=== PATIENT | female | born 1990 | race Caucasian/White ===

== ENCOUNTER → 2018-08-14 12:48 | Outpatient (CLI) | payer OTHER, MEDICAID, SELFPAY ==
[2018-08-14 13:27] LABS: Add Manual Diff / Slide Review NO; Basophils Percent Auto 0.8 % (0-2); Eosinophils Percent Auto 4.2 % (2-4); Hematocrit 39.5 % (36-46); Hemoglobin 13.6 g/dL (12.0-16.0); Lymphocytes Percent Auto 30.5 % (25-40); Mean Corpuscular HGB Conc 34.4 % (30-36); Mean Corpuscular Hemoglobin 28.5 PG (26-34); Mean Corpuscular Volume 82.7 fL (80-100); Monocytes Percent Auto 6.6 % (3-14); Neutrophils Absolute Auto 3800 /uL (3000-5900); Neutrophils Percent Auto 57.9 % (50-75); Platelet Count 236 X10^3/uL (150-400); Red Blood Cell Count 4.77 X10^6/uL (4.0-5.2); Red Cell Distribution Width 13.6 % (11.6-14.8); White Blood Cell Count 6.6 X10^3/uL (4.5-11.0)
== END ==
PROVIDERS: PCP Family Medicine; Visit Provider Family Medicine
DX: N92.0 Excessive and frequent menstruation with regular cycle (principal); Z86.32 Personal history of gestational diabetes
CPT/HCPCS: 36415; 83036; 85025

== ENCOUNTER 2018-09-14 12:44 | Day surgery (SDC) | payer OTHER, MEDICAID, SELFPAY ==
[2018-09-10 14:24] VITALS: BMI 27.8
[2018-09-14] VITALS (17 sets, daily range): BP systolic 102–138; BP diastolic 55–84; PULSE 58–91; RESP 14–32; TEMP 36.2–37.4; O2SAT 92–100; BMI 27.8
--- NOTE | 2018-09-14 | PATH_ITS ---
[facility] Accession Number: [id number] . 01 Material submitted: . UTERUS . 02 Diagnosis: Uterus, Vaginal Hysterectomy: Cervix with no diagnostic abnormality. Proliferative endometrium with no diagnostic abnormality. Myometrium with no diagnostic abnormality. No evidence of neoplasm. MRV/09/17/2018 . 02 Electronically signed: . Max Guzman MD, PhD, Pathologist NPI- [id number] . 01 Gross description: . Received in formalin, labeled uterus, is a uterus (84 grams, 3.6 cm AP, 7.8 cm SI, 5.2 cm ML). The ovaries and fallopian tubes are absent. The uterus is longitudinally sliced opened and cannot be oriented as to anterior and posterior. The cervix (2.5 cm AP, 3.2 cm ML) has a transverse os and patent endocervical canal. The endometrium (average thickness-0.2 cm) is longo and shaggy. The myometrium (thickness-2.2 cm) is longo-white and unremarkable. The serosa is pale longo smooth and shiny. Section code: (A1) cervix; (A2) cervix, opposite side; (A3, A4) endomyometrium; (A5, A6) endomyometrium, opposite side. ([id number]) /MRV . 02 Pathologist provided ICD-10: N92.1 . 02 CPT . 636039 Specimen Comment: A duplicate report has been generated due to demographic updates. Performed at: [facility] [address] [facility], [place], [place] [id number] MD Juan Carlos Pabon MD Phone: [phone] Performed at: [facility] [address] [place] [id number] MD Parish Hunt MD Phone: [phone]
[2018-09-14] MEDS: LACTATED RINGERS 1,000 ML 42 ML IV (13:25)
[2018-09-14] MEDS: MIDAZOLAM 2 MG/2 ML VIAL IV (13:40)
--- NOTE | 2018-09-14 13:40 | SUR.PREOP ---
Pt. extremely nervous, anesthesia gave verbal order to medicate with 2mg IV.
[2018-09-14] MEDS: CEFOTETAN 2 GM/50 ML PIGGYBACK IV (13:55)
--- NOTE | 2018-09-14 14:08 | SUR.OPER ---
Lithotomy on padded OR bed, head on pillow, arms secured on padded arm boards at <90 degrees abduction. Legs secured in padded yellow fins stirrups.
[2018-09-14] MEDS: BUPIVACAINE 0.5% W/ EPI (PF) VIAL 30 ML INJ (14:14)
--- NOTE | 2018-09-14 14:48 | P.OP_ITS ---
Operative Date/Time/Diagnoses Date of procedure: 09/14/18 Time of procedure: 14:42 Pre-op diagnosis: Menometrorrhagia Uterine descensus Post-op diagnosis: same Procedure: Procedures Operation Date: 09/14/18 14:00 Actual Procedures Side Surgeon p Vaginal Hysterectomy Dinesh Rinaldi MD Indications: Menometrorrhagia Uterine descensus Surgeon: Dinesh Rinaldi Band Scroll Saw Operator: Kayla Yu Anesthesia Type: General Operative Notes Findings: Uterus Normal tubes and ovaries Specimen(s): uterus Estimated blood loss (mL): 100 Blood products transfused: none Procedure in detail: The patient is placed supine upon the operating table and anesthetized. She was then placed in the dorsal lithotomy position and examined under anesthesia. Under anesthesia she had an anteverted uterus of normal size and no adnexal masses. The patient was then draped and prepared in the usual fashion. A posterior weighted retractor was set in place and the anterior lip of the cervix two tooth tenacula. Berlin retractor was set in place. A circumferential injection of 0.5% Marcaine and 1 to 116765 epinephrine was then performed without difficulty. Sharp knife incision was then made circumferentially. The anterior pubocervical fascia was then dissected. The bladder was pushed in a cephalad direction exposing the peritoneum. The perineum was picked up and incised the Thania retractor set in place. Attention was turned to the posterior side. Area was grasped and incised with a large Gilmore scissors. And the peritoneum opened. The longer posterior weighted retractor was then set in place. The right uterosacral leg was then clamped incised and suture ligated this pedicle held. The left uterus sacral ligaments bilaterally clamped incised and suture ligated this pedicle held. The cardinal ligaments were then bilaterally count clamped incised and suture ligated with 1. Chromic suture. Uterine vessels were bilaterally clamped incised and suture ligated with 1. Chromic suture. 2 additional clampings were then used until tubo-ovarian rounds were clamped. These were free tied and and suture ligated with 1. Chromic suture. Tubes and ovaries appeared to be normal. The uterus was removed and opened and appeared to be normal. This no perineum was then closed with a pursestring suture of 0 chromic suture without difficulty. Angle sutures of 1. Chromic suture were then used bilaterally. The vaginal cuff was then closed with interrupted 1. Chromic suture. At the end of the procedure there was no bleeding. Bladder was catheterized and the urine was clear. Patient was taken to the recovery room in satisfactory condition. Complications: none Post-operative Condition: stable Disposition: PACU Plan for aftercare: Patient is admitted to the floor
[2018-09-14] MEDS: fentaNYL 100 MCG/2 ML INJ 50 MCG IV ×2 (14:54→15:10)
[2018-09-14] MEDS: HYDROMORPHONE 2 MG INJ 0.5 MG IV ×4 (14:55→15:42)
[2018-09-14] MEDS: MEPERIDINE 50 MG/ML 25 MG IV (15:03)
--- NOTE | 2018-09-14 15:21 | SUR.PHASEI ---
Gave report to Bety Reeves RN
[2018-09-14] MEDS: KETOROLAC 30 MG/ML VIAL IV ×2 (17:27→23:46)
[2018-09-14] MEDS: LACTATED RINGERS 1,000 ML 100 ML IV (17:30)
[2018-09-14] MEDS: HYDROMORPHONE 2 MG TABLET PO ×2 (17:32→21:28)
[2018-09-14 17:59] LABS: BUN Creatinine Ratio 18.3 (6-22); Blood Urea Nitrogen 11 mg/dL (7-17); Calcium 8.9 mg/dL (8.4-10.2); Carbon Dioxide 21 mmol/L (22-32); Chloride 106 mmol/L (98-107); Estimated Glomerular Filt Rate > 60.0 mL/min (>60); Glucose 94 mg/dL (70-100); HEMOLYSIS < 15 (0-50); Potassium 3.6 mmol/L (3.4-5.1); Sodium 140 mmol/L (137-145)
[2018-09-14] MEDS: HYDROMORPHONE 0.5 MG INJ IV (20:45)
--- NOTE | 2018-09-14 22:26 | PC.NURSE ---
Evening Shift Note- Patient arrived to room from [facility] bed at 1550. Patient alert and oriented and able to make needs known to staff. surgical admission questions completed. PRN PO Dilaudid given as ordered per patient request for complaints of pain and cramping. Patient tolerated with no s/s of ase noted. Patient oriented to bed and bed controls, room, bathroom, lights, phone, menu, and call acosta/tv remote. Patient agrees to call for assistance. Patient requires SBA due to IV pole and tubing. Steady gait noted. safety measures in place. call acosta and phone within reach. Will continue to monitor.
[2018-09-14] MEDS: HYDROCODONE/ACET 5/325 TABLET 2 TAB PO (23:41)
[2018-09-14] MEDS: ZOLPIDEM 5 MG TABLET 10 MG PO (23:41)
[2018-09-15] VITALS: BP 140/68; PULSE 57; RESP 17; TEMP 37; O2SAT 100
[2018-09-15] MEDS: HYDROMORPHONE 2 MG TABLET PO ×2 (01:12→06:40)
[2018-09-15] MEDS: CEFOTETAN 2 GM/50 ML PIGGYBACK IV (02:55)
[2018-09-15] MEDS: LACTATED RINGERS 1,000 ML 100 ML IV (02:56)
[2018-09-15] MEDS: HYDROCODONE/ACET 5/325 TABLET 2 TAB PO (03:49)
[2018-09-15 03:51] VITALS: BP 117/55; PULSE 54; RESP 19; O2SAT 100
--- NOTE | 2018-09-15 03:56 | PC.NURSE ---
Pt is A and O x 4, VSS, afebrile. Pt is rating pain 5-7/10 routinely donell p urination. All prn pain meds given; pt prefers IVP dilaudid. S1, S2, LS clear, + BTs, and voiding qs clear yellow. Scant vag discharge, pink. Pt has been emotional this shift 2/2 pain issues and noisy pt next door.
[2018-09-15] MEDS: HYDROMORPHONE 0.5 MG INJ IV (04:32)
--- NOTE | 2018-09-15 04:49 | PC.NURSE ---
Pt requested IVP dilaudid and p administration she claimed she was not given anything. That we have given her heart burn which she didn't have before she came in and that this batch of nurses have not done anything for me. Nurse Coordinator asked to speak to patient who verified that noc shift med regime the same as evenings. Pt crying and yelling. MD should be rounding within two hours.
--- NOTE | 2018-09-15 05:23 | PC.NURSE ---
Dr. Moreno Mason contacted per patient request, but declined to come in and advised patient wait to see Dr. Bee when he rounds in 1- 2 hours.
[2018-09-15] MEDS: ONDANSETRON 4 MG/2 ML INJ IV (06:39)
--- NOTE | 2018-09-15 06:42 | PC.NURSE ---
NOC Shift I stepped up to help assigned RN. Patient's signifigant other arrived around 0520 and seemed to calm the patient (patient was yelling/screaming out throughout shift, using profanities to staff and in general). I went to room two times, per nurse coordinator, but patient was relaxed and had room dark. Responded with pt threw up (clear, maybe 30ml, on the floor). Administered 4mg Zofran and offered Zetorolac for 6/10 pain. Patient yelled and stated, Don't you women know that isn't working. I tried to explain the medication and how it can be an effective additive to her pain regimen, but she refused and preferred to have the 2mg Dilaudid PO, which I administered to her at 0640.
[2018-09-15 07:36] LABS: Add Manual Diff / Slide Review NO; Basophils Percent Auto 0.2 % (0-2); Hematocrit 40.3 % (36-46); Hemoglobin 13.9 g/dL (12.0-16.0); Lymphocytes Percent Auto 8.6 % (25-40); Mean Corpuscular HGB Conc 34.4 % (30-36); Mean Corpuscular Hemoglobin 28.6 PG (26-34); Mean Corpuscular Volume 83.1 fL (80-100); Monocytes Percent Auto 5.7 % (3-14); Neutrophils Absolute Auto 13100 /uL (3000-5900); Neutrophils Percent Auto 85.5 % (50-75); Platelet Count 259 X10^3/uL (150-400); Red Blood Cell Count 4.85 X10^6/uL (4.0-5.2); Red Cell Distribution Width 13.2 % (11.6-14.8); White Blood Cell Count 15.3 X10^3/uL (4.5-11.0)
--- NOTE | 2018-09-15 07:47 | PC.NURSE ---
Addendum entered by Annabelle Clayton R.N. 09/15/18 08:34: Add-Pt did accept w/c assistance out from JACQUELYN Dangelo approx [address], safely escorted to private vehicle. Original Note: Addendum entered by Annabelle Clayton R.N. 09/15/18 08:12: 0758-Dr cagle into get Pt d/c paperwork completed. IV removed. Attempted to Explain Rx's, Pt refused, I just want the fuck out of here, what dont you understand? Refused w/c assistance, walked Pt out. Notified Coordinator Elke. Original Note: Am shift Came on shift to Pt crying, upset that medication wasn't given to her to help her pain, and that Pt next door was yelling overnight. C/o heartburn. Pt in shower, discussed medication overnight and what Pt had been receiving. And discussed POC for d/c today. I want to go home, I just want the to send me home now Reassured.
--- NOTE | 2018-09-15 08:01 | PM.DS.1 ---
History of Present Illness Date Patient Seen: 09/15/18 Time Patient Seen: 08:01 Chief complaint: *OPB* [id number] Narrative: Menometrorrhagia Uterine descent Discharge Providers Primary care physician: Kayla Yu MD Discharge provider: Dinesh Rinaldi MD Discharge Date: 09/15/18 Summary Discharge Diagnosis: Status post vaginal hysterectomy Menometrorrhagia Uterine descensus Hospital Course: Patient is a 28-year-old presented with intractable history of menometrorrhagia dysmenorrhea pelvic pain and uterine prolapse. Patient had tried all the distal therapies and found to be ineffective and desired hysterectomy. On the 14 September 2018 the patient was taken to surgery where she underwent a vaginal hysterectomy without incident. Postoperatively she did well. She remained afebrile with stable vital signs and was progressively elevated at ambulated. She was discharged home for follow-up in two weeks. Status at Discharge Functional status at discharge: independent ambulation Time Spent with Patient Less than 30 minutes Exam Vital Signs (past 8 hours): - 09/15/18 03:51 Pulse Rate 54 L Respiratory Rate 19 Blood Pressure 117/55 L Pulse Oximetry 100 Oxygen Delivery Method Room Air Narrative Exam Narrative: Abdomen is soft and nontender Vaginal drainage is scant Objective Labs Result Diagrams: 09/15/18 07:08 09/14/18 17:19 Labs: Laboratory Results - last 24 hr 09/14/18 09/15/18 17:19 07:08 WBC 15.3 H RBC 4.85 Hgb 13.9 Hct 40.3 MCV 83.1 MCH 28.6 MCHC 34.4 RDW 13.2 Plt Count 259 Neut % (Auto) 85.5 H Lymph % (Auto) 8.6 L Converse % (Auto) 5.7 Eos % (Auto) 0.0 L Baso % (Auto) 0.2 Neut # (Auto) 12149 H Sodium 140 Potassium 3.6 Chloride 106 Carbon Dioxide 21 L BUN 11 Creatinine 0.60 Estimated GFR > 60.0 BUN/Creatinine Ratio 18.3 Glucose 94 Calcium 8.9 Discharge Plan Discharge Plan Patient Disposition: Home Discharge comment: Follow-up with Dr. Larsen in two weeks Discharge Med Rec/Prescriptions Prescriptions: New oxycodone-acetaminophen [Percocet] 5-325 mg tablet 2 tab PO Q4-6H PRN (Reason: pain) Qty: 30 RF: 0 ibuprofen 600 mg tablet 600 mg PO QID PRN (Reason: pain) Qty: 20 RF: 0 Continue buspirone 15 MG tablet 15 mg PO BID Qty: 60 RF: 1 albuterol sulfate [Proventil HFA] 90 mcg/actuation HFA aerosol inhaler 2 puff INHALATION Q4HP PRN (Reason: shortness of breath or wheezing) Qty: 3 RF: 3 zolpidem 5 mg tablet 5 mg PO BEDTIME PRN (Reason: insomnia) Qty: 30 RF: 0 alprazolam [Xanax] 1 mg tablet 0.5 mg PO ONCE PRN (Reason: anxiety) Qty: 1 RF: 0 Discontinued ondansetron [Zofran ODT] 4 mg tablet,disintegrating 4 mg Sublingual Q6HP PRN (Reason: nausea) Qty: 30 RF: 0 meloxicam 7.5 mg tablet 7.5 mg PO DAILY Qty: 60 RF: 0 oxycodone-acetaminophen [Percocet] 5-325 mg tablet 1 tab PO Q4-6H PRN (Reason: pain) Qty: 10 RF: 0 Follow up/Referrals: Kayla Yu MD [Primary Care Provider] - Discharge Orders: Discharge (Order); Ordered 09/15/18 Ordered By: Dinesh Rinaldi Provider Discharge Instructions Diet: Diet as Tolerated Activity: Up ad ignacio May shower Skin/Wound/Dressing Care Report to your healthcare provider any signs of infection, such as:: chills, fever, increased pain and unusual drainage Visit Report/Discharge Packet Instructions: DI for Hysterectomy Stand Alone Forms: Surgery Discharge Discharge Data Primary Care Provider: Kayla Yu Attending Provider: Dinesh Rinaldi VTE Deep Vein Thrombosis/Pulmonary Embolism Present on Admission: No
--- NOTE | 2018-09-15 13:21 | CM.DANOTE ---
Discharge Planning/Care Management DCP: Assessment: Case received and discussed in Team Rounds. Pt is a 28 year old female who admitted to care of Dr. Rinaldi for a scheduled gynecological surgery. [facility] and Medicaid. PCP: DR. Yu Had planned to meet with pt after Rounds for introduction of self and role but RN peace Bedoya explained that pt had become angry and agitated early this morning and insisted on leaving immediately. Dr. Rinaldi had arrived and gave d/c orders. See RN Annabelle's note. Pt left with her for home at 0815. Am noting now the pre-op/pre anesthesia assessment notes. Preop RN Dunia Laguerre reports pt with hx of alcoholism, methamphetamine and heroin use. Is unclear if this played any role in pt's decision to leave the hospital. 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 No Currently Taking a Beta Hank No Anti-Coagulant Therapy No Has a Global Marketing Intern No Cardiac Testing No Hx Pacemaker/ICD No Pacemaker Rep Required? No Cardiac Clearance Received Not Applicable Patient No Lactating No Comment LMP 08/06/18 Hx Drug Resistant Organism H-pylori Presence of External or Internal Medical No Devices Marital Status Lives With spouse children
== END 2018-09-15 09:18 | disposition home or self-care (01) ==
LOC: OR 12:49 → AC 16:26
PROVIDERS: PCP Family Medicine
PROC: (CPT 58260; principal; 2018-09-14 14:00)
DX: N92.1 Excessive and frequent menstruation with irregular cycle (principal); N94.5 Secondary dysmenorrhea
CPT/HCPCS: 58260; 36415; 80048; 85025; J1100; J1170; J1885; J2175; J2250; J2405; J2704; J3010

== ENCOUNTER 2018-12-18 07:14 | Day surgery (SDC) | payer OTHER, MEDICAID, SELFPAY ==
[2018-09-14 18:14] VITALS: BMI 27.8
[2018-12-18] VITALS (7 sets, daily range): BP systolic 101–120; BP diastolic 55–71; PULSE 56–74; RESP 12–23; TEMP 36.6–36.8; O2SAT 96–100; BMI 25.8
[2018-12-18] MEDS: ONDANSETRON 4 MG/2 ML INJ IV (07:36)
[2018-12-18] MEDS: SODIUM CHLORIDE 0.9% 1,000 ML 200 ML IV (07:45)
--- NOTE | 2018-12-18 08:14 | PM.PREOP ---
Pre-operative Note Interval Note History & Physical reviewed/Exam performed by Physician: Yes Changes to H&P: No ASA Class (for procedural sedation): II
[2018-12-18] MEDS: SCOPOLAMINE 1 PATCH TOP (08:16)
[2018-12-18] MEDS: diphenhydrAMINE 50 MG/ML VIAL 25 MG IV (08:28)
[2018-12-18] MEDS: fentaNYL 250 MCG/5 ML INJ IV (08:46)
[2018-12-18] MEDS: MIDAZOLAM 5 MG/5 ML VIAL IV (08:47)
--- NOTE | 2018-12-18 08:49 | PM.OP.ENDO ---
Operative Date/Time/Diagnoses Date of procedure: 12/18/18 Time of procedure: 08:49 Pre-op diagnosis: Rectal pain bleeding Post-op diagnosis: same Procedure & Clinicians Study performed: Colonoscopy Same procedure as scheduled: Yes Indications: Rectal pain. Rectal bleeding. Procedure Notes SCOAP/Timeout: Performed Procedure in detail: The patient is placed in left lateral decubitus position underwent IV sedation directed with the surgeon consisting of fentanyl and Versed. Topical anesthetic was applied to the anal verge. The patient had anti nausea medicines given prior to starting due to her history of nausea with anesthesia. Digital exam increased sphincter tone. Visible sentinel pile. Tender. Scope was inserted advanced through the rectum into the sigmoid where encountered a few diverticuli. We continued on of the descending transverse and ascending colon reaching the cecum identified by the ileocecal valve and the appendiceal opening. Scope was gradually brought out. I could identify no polyps going in or out. Scope was retroflexed in the rectum. The patient had scarring on old hemorrhoidal disease. There was no active ulceration. No in visible inflammation. The scope was removed. With the patient better sedated I examined her anus a little further and she may have some mild induration at the 5:00 position. We will consider exam under anesthesia to evaluate. Findings: diverticulosis and internal hemorrhoids Recommendations: Colonscopy in 10 years Follow up: weeks (Will contact patient) Disposition: PACU
--- NOTE | 2018-12-18 09:12 | SUR.PHASEI ---
see i & O for normal saline infusion total. MAR did not have start time so i was unable to end infusion
== END 2018-12-18 09:32 | disposition home or self-care (01) ==
PROVIDERS: PCP Family Medicine; Visit Provider Specialist
PROC: 0DJD8ZZ Inspection of Lower Intestinal Tract, Via Natural or Artificial Opening Endoscopic (ICD-10-PCS; CPT 45378; principal; 2018-12-18 08:45)
DX: K62.5 Hemorrhage of anus and rectum (principal); K57.30 Diverticulosis of large intestine without perforation or abscess without bleeding; K64.8 Other hemorrhoids; F17.210 Nicotine dependence, cigarettes, uncomplicated; F41.9 Anxiety disorder, unspecified; J45.909 Unspecified asthma, uncomplicated; F31.9 Bipolar disorder, unspecified; F32.9 Major depressive disorder, single episode, unspecified
CPT/HCPCS: 45378; J1200; J2250; J2405; J3010

== ENCOUNTER 2018-12-21 09:34 | Day surgery (SDC) | payer OTHER, MEDICAID, SELFPAY ==
[2018-09-14 18:14] VITALS: BMI 27.8
[2018-12-19 12:15] VITALS: BMI 26.3
[2018-12-21] VITALS (11 sets, daily range): BP systolic 94–136; BP diastolic 46–94; PULSE 65–89; RESP 10–20; TEMP 36.2–36.4; O2SAT 97–100; BMI 26.3
--- NOTE | 2018-12-21 | PATH_ITS ---
[facility] Accession Number: [id number] . 01 Material submitted: . PART A: ANAL TAG PART B: EXTERNAL TAG PART C: RIGHT POSTERIOR LATERAL HEMORRHOID . 01 Diagnosis: A. Anal Tag, Biopsy: Benign fibroepithelial polyp (acrochordon/skin tag). Negative for dysplasia or malignancy. . B. External Tag, Biopsy: Benign fibroepithelial polyp (acrochordon/skin tag). Negative for dysplasia or malignancy. . C. Right Posterior Lateral Hemorrhoid, Excision: Hemorrhoid tissue. Negative for malignancy. MRV/12/25/2018 . 01 Comment: This case has also been reviewed by Dr. Angie Jaquez, who concurs with the diagnoses. . 01 Electronically signed: . Ester Radford MD, Pathologist NPI- [id number] . 01 Gross description: . (A) Received in formalin, labeled anal tag, is a piece of carpio-white rubbery polypoid skin (0.8 x 0.5 x 0.2 cm). The resection margin is inked black. Bisected and entirely submitted in cassette A1. (B) Received in formalin, labeled external tag, is a piece of carpio-white rubbery polypoid skin (1.5 x 1.0 x 0.3 cm). The resection margin is inked black. Serially sectioned into four slices and entirely submitted in cassette B1. (C) Received in formalin, labeled R posterior lateral hemorrhoid, is a piece of carpio-longo bulging skin (1.3 x 0.5 x 0.3 cm). The resection margin is inked black. Trisected and entirely submitted in cassette C1. ([id number]) /MRV . 01 Pathologist provided ICD-10: L91.8 . 01 CPT . 826364, 232909, 335645 Performed at: [facility] [address], [place], [place] [id number] MD Juan Carlos Pabon MD Phone: [phone]
[2018-12-21] MEDS: LACTATED RINGERS 1,000 ML 100 ML IV ×2 (10:03→13:47)
--- NOTE | 2018-12-21 10:59 | PM.PREOP ---
Pre-operative Note Interval Note History & Physical reviewed/Exam performed by Physician: Yes Changes to H&P: Yes H&P completed within 30 days and has changed as indicated here:: colonoscopy failed to reveal an obvious source of her rectal pain. Will take to OR to evaluate anus while asleep. Possible abscess drainage or possible lateral internal sphincterotomy discussed with the patient.
[2018-12-21] MEDS: MIDAZOLAM 2 MG/2 ML VIAL IV (11:00)
[2018-12-21] MEDS: SCOPOLAMINE 1 PATCH TOP (11:01)
[2018-12-21] MEDS: BUPIVACAINE 0.5% W/ EPI (PF) VIAL 30 ML INJ (13:09)
--- NOTE | 2018-12-21 13:13 | SUR.OPER ---
Supine on padded OR bed, head on pillow, arms secured on padded arm boards at <90 degrees abduction, legs uncrossed, safety belt at thigh, tape over blanket over lower legs.
--- NOTE | 2018-12-21 13:33 | PM.OP.1 ---
Operative Date/Time/Diagnoses Date of procedure: 12/21/18 Time of procedure: 13:33 Pre-op diagnosis: Rectal pain Post-op diagnosis: same (Hemorrhoid. Skin tags.) Procedure & Clinicians Procedure: Exam under anesthesia. Single column hemorrhoidectomy right posterior lateral, excision of skin tag anterior midline internal tag anterior midline Same procedure as scheduled: Yes Indications: Chronic pain Surgeon: Sherif Lindo Click Yes if Unassisted: Yes Anesthesia Type: General Operative Notes Findings: Single hemorrhoidal column. No evidence of abscess. Closure Type: primary Specimen(s): other (Tags and hemorrhoid) Estimated Blood Loss (mL): 20 Blood products transfused: none Procedure in detail: Patient was placed duct I prone on the operating room table after undergoing general endotracheal anesthesia. She was prepped and draped in the usual fashion. Digital exam was unremarkable except for 1 hemorrhoid and a visible tag in the anterior midline. A bivalve anoscope was inserted and circumferential exam undertaken. The only significant finding was of a hemorrhoid right posterior lateral. There was also small tag in the anterior midline internally which I snipped off and submitted. Careful exam both with the digit and visual inspection circumferentially failed to reveal any evidence whatsoever of an abscess. I excised the anterior midline tag and close the defect created with a running 4 0 chromic. I chose to remove the hemorrhoid which seemed a little full as there may have been some thrombosis in it causing some of her pain. Incision was made overlying the hemorrhoid and it was excised and then oversewn with running 2 0 chromic suture. Great care was taken not to injure the underlying sphincter. A completion hemostasis was achieved. Nupercainal on Gel-Foam was inserted into the anus. Dressing was applied and the patient was awakened taken recovery room good condition. Complications: none Condition: stable Disposition: PACU Plan for aftercare: Follow-up in the office
[2018-12-21] MEDS: fentaNYL 100 MCG/2 ML INJ 50 MCG IV ×2 (13:41→13:53)
[2018-12-21] MEDS: LORazepam 2 MG/ML SYRINGE 0.5 MG IV (13:43)
[2018-12-21] MEDS: MEPERIDINE 50 MG/ML 25 MG IV (13:59)
[2018-12-21] MEDS: OXYCODONE/ACETAMINOPHEN 5/325 TABLET 1 TAB PO (14:26)
== END 2018-12-21 15:30 | disposition home or self-care (01) ==
PROVIDERS: PCP Family Medicine; Visit Provider Specialist
PROC: (CPT 45990; principal; 2018-12-21 11:30)
DX: L91.8 Other hypertrophic disorders of the skin (principal); K64.8 Other hemorrhoids; F17.210 Nicotine dependence, cigarettes, uncomplicated; F41.9 Anxiety disorder, unspecified; J45.909 Unspecified asthma, uncomplicated
CPT/HCPCS: 46999; 46220; 88304; J0330; J1100; J2060; J2175; J2250; J2405; J2704; J3010

== ENCOUNTER 2019-02-09 01:34 | Emergency (ER) | payer OTHER, MEDICAID, SELFPAY ==
[2018-12-27 13:49] VITALS: BMI 27.8
[2019-02-09 01:50] VITALS: BP 142/78; PULSE 68; RESP 18; TEMP 37.1; O2SAT 100; BMI 22.8
--- NOTE | 2019-02-09 02:05 | DI.CT.S_ITS ---
PROCEDURE: CT ABDOMEN PELVIS W CON INDICATIONS: severe pelvic pain TECHNIQUE: After the administration of intravenous contrast, 5 mm thick sections acquired from the diaphragm to the symphysis. 5 mm coronal and sagittal reformats were acquired. For radiation dose reduction, the following was used: automated exposure control, adjustment of mA and/or kV according to patient size. COMPARISON: [facility], CT, ABDOMEN/PELVIS WITH CONTRAST, 05/11/2012, 13:17. [facility], CT, ABDOMEN/PELVIS WITH CONTRAST, 11/22/2017, 12:17. FINDINGS: Image quality: Excellent. ABDOMEN: Lung bases: Lung bases are clear. A 7 mm pulmonary nodule in the extreme left lung base is stable from the prior study of 05/11/12. It is a benign finding for which no further followup is required. Heart size is normal. Solid organs: Liver is normal in size and enhancement. Gallbladder is unremarkable. Biliary system is non dilated. Pancreas enhances normally. Spleen is normal in size and enhancement. No adrenal nodules. Kidneys demonstrate normal size and enhancement, without hydronephrosis. Peritoneum and bowel: Bowel loops demonstrate normal wall thickness and caliber. No free fluid or air. Mild sigmoid and left colonic diverticulosis. No evidence of diverticulitis. Nodes and vessels: No retroperitoneal or mesenteric adenopathy by size criteria. Aorta and inferior vena cava are normal in size. Miscellaneous: No ventral hernias. PELVIS: Genitourinary: Bladder wall thickness is normal. Miscellaneous: No inguinal hernias or adenopathy. Bones: No suspicious bony lesions. No vertebral body compression fractures. IMPRESSION: 1. No evidence acute abdominal process. 2. Benign left lower lobe pulmonary nodule. No further followup required. 3. Mild diverticulosis. Comment: Final report is concurrent with preliminary interpretation by [facility] Dictated by: Thanh Gorman M.D. on 02/09/2019 at 8:03 Approved by: Thanh Gorman M.D. on 02/09/2019 at 8:08
[2019-02-09 02:27] LABS: Add Manual Diff / Slide Review NO; Basophils Absolute Auto 100 /uL (0-100); Basophils Percent Auto 0.8 % (0-2); Eosinophils Absolute Auto 200 /uL (0-450); Eosinophils Percent Auto 2.7 % (2-4); Hematocrit 38.3 % (36-46); Hemoglobin 13.2 g/dL (12.0-16.0); Lymphocytes Absolute Auto 2200 /uL (1100-4500); Lymphocytes Percent Auto 33.3 % (25-40); Mean Corpuscular HGB Conc 34.5 % (30-36); Mean Corpuscular Hemoglobin 28.9 PG (26-34); Mean Corpuscular Volume 83.7 fL (80-100); Monocytes Absolute Auto 400 /uL (0-900); Monocytes Percent Auto 6.1 % (3-14); Neutrophils Absolute Auto 3900 /uL (1500-7000); Neutrophils Percent Auto 57.1 % (50-75); Platelet Count 250 X10^3/uL (150-400); Red Blood Cell Count 4.57 X10^6/uL (4.0-5.2); Red Cell Distribution Width 13.1 % (11.6-14.8); White Blood Cell Count 6.7 X10^3/uL (4.5-11.0)
[2019-02-09 02:31] LABS: BUN Creatinine Ratio 25.7 (6-22); Blood Urea Nitrogen 18 mg/dL (7-17); Calcium 9.1 mg/dL (8.4-10.2); Carbon Dioxide 25 mmol/L (22-32); Chloride 105 mmol/L (98-107); Estimated Glomerular Filt Rate > 60.0 mL/min (>60); Glucose 96 mg/dL (70-100); HEMOLYSIS < 15 (0-50); Potassium 3.6 mmol/L (3.4-5.1); Sodium 139 mmol/L (137-145)
[2019-02-09] MEDS: SODIUM CHLORIDE 0.9% 1,000 ML 1000 ML IV (02:54)
[2019-02-09] MEDS: ONDANSETRON 4 MG/2 ML INJ IV (02:55)
--- NOTE | 2019-02-09 03:11 | ED.ABDPAIN ---
HPI - Abdominal Pain General Chief Complaint: Abdominal Pain Stated Complaint: Pain after intercourse, had hysterectomy Time Seen by Provider: 02/09/19 01:40 Source: patient Mode of arrival: ambulatory Limitations: no limitations History of Present Illness HPI narrative: 28-year-old female smoker with history of chronic pelvic pain and resultant hysterectomy presents with a chief complaint of episodes of pelvic pain after intercourse a few days ago. She had minor vaginal spotting which has since stopped. Her pain is across her lower abdomen and she is concerned that something happened internally. She denies any nausea or vomiting. She has had no fever or chills. She denies dysuria, frequency or urgency. Her pain is worse with motion and improves with rest. MD complaint: abdominal pain Onset (ago): day(s) Pain Consistency: intermittent Location: suprapubic Severity: moderate Quality: cramping, stabbing and aching Radiation: none Migration to: no migration Relieving factors: rest Exacerbating factors: movement Context: other Related Data Previous Rx's Medication Instructions Recorded buspirone 15 mg PO BID #60 tab 06/23/17 ibuprofen 600 mg tablet 600 mg PO QID PRN #20 tab 10/15/18 zolpidem 5 mg tablet 5 mg PO BEDTIME PRN #30 tab 10/15/18 hydrocortisone 2.5 % topical cream 1 applictn NV BID PRN #30 gram 10/31/18 with perineal applicator lidocaine 5 % topical ointment 1 applictn TOP QID PRN #30 gram 11/28/18 naproxen 500 mg tablet 500 mg PO BID PRN #30 tab 11/28/18 albuterol sulfate HFA 90 2 puff INHALATION Q4HP PRN #3 12/04/18 mcg/actuation aerosol inhaler inhalation oxycodone 5 mg PO Q4-6H PRN #60 tab 12/21/18 naproxen 500 mg tablet 500 mg PO BID PRN #30 tab 01/01/19 Allergies Allergy/AdvReac Type Severity Reaction Status Date / Time Penicillins Allergy Intermediate HIVES, Verified 02/09/19 01:54 LUNGS SWELL amoxicillin [AMOXICILLIN] Allergy Mild HIVES, Verified 02/09/19 01:54 HARD TO BREATH ampicillin [AMPICILLIN] Allergy Mild HIVES, Verified 02/09/19 01:54 HARD TO BREATH Review of Systems Constitutional Denies chills, Denies fever(s), Denies lethargy and Denies weakness Eyes Denies change in vision, Denies eye discharge, Denies irritation and Denies loss of vision ENT Ears, Nose, Mouth, and Throat: Denies change in voice, Denies neck pain and Denies sore throat Cardiovascular Denies chest pain, Denies irregular heart rhythm, Denies lightheadedness, Denies palpitations, Denies dyspnea, Denies dyspnea on exertion and Denies orthopnea Respiratory Denies cough, Denies dyspnea, Denies dyspnea on exertion and Denies wheezing Gastrointestinal Gastrointestinal: Reports abdominal pain, Denies change in bowel habits, Denies diarrhea, Denies nausea and Denies vomiting Genitourinary Denies hematuria, Denies flank pain, Denies urinary incontinence and Denies urinary urgency Musculoskeletal Denies neck pain Integumentary/Breasts Denies pruritus, Denies erythema, Denies rash and Denies wounds Neurologic Denies confusion, Denies loss of vision and Denies weakness Psychiatric Denies anxiety, Denies confusion, Denies depression, Denies homicidal ideation and Denies suicidal ideation Endocrine Denies palpitations Hematologic/Lymphatic Denies easy bruising Allergic/Immunologic Denies wheezing [facility] Medical History Diverticulosis (Acute) Dysmenorrhea (Acute) Hemorrhoids (Acute) History of hysterectomy (Acute) History of suicidal ideation (Acute) Menometrorrhagia (Acute) Anxiety (Chronic) Asthma (Chronic) Bipolar disorder (Chronic) Depression (Chronic) Substance abuse (Chronic) Chicken pox (Resolved) History of Helicobacter pylori infection (Resolved) Hx of hysterectomy (Resolved) Spontaneous vaginal delivery (Resolved) Surgical History History of surgery (Acute) Anesthesia (Resolved) History of surgery (Resolved ~2002) History of surgery on arm (Resolved ~2000) Status post laparoscopy (Resolved 2014) Status post tubal ligation (Resolved 03/25/16) Family History Mother Age: 57 Type 2 diabetes mellitus Hypertension Bipolar disorder Brother No problems noted. Father Hypertension Grandfather Lung cancer Grandmother No problems noted. Grandfather No problems noted. Grandmother Stroke Social History household members: spouse and children Smoking Status: Current some day smoker alcohol intake: never Family History Mother Age: 57 Type 2 diabetes mellitus Hypertension Bipolar disorder Brother No problems noted. Father Hypertension Grandfather Lung cancer Grandmother No problems noted. Grandfather No problems noted. Grandmother Stroke Social History household members: spouse and children Smoking Status: Current some day smoker alcohol intake: never Exam Narrative Exam Narrative: GENERAL: 28-year-old female appears stated age, tearful and complaining of pain. HEAD: Atraumatic. Normocephalic. No temporal or scalp tenderness. EYES: Pupils equal round and reactive. Extraocular motions intact. No scleral icterus. No injection or drainage. ENT: Nose without bleeding, purulent drainage or septal hematoma. Throat without erythema, tonsillar hypertrophy or exudate. Uvula midline. Airway patent. NECK: Trachea midline. No JVD or lymphadenopathy. Supple, nontender, no meningeal signs. CARDIOVASCULAR: Regular rate and rhythm without murmurs, gallops, or rubs. RESPIRATORY: Clear to auscultation. Breath sounds equal bilaterally. No wheezes, rales, or rhonchi. GASTROINTESTINAL: Abdomen soft, mild suprapubic tenderness, nondistended. No hepato-splenomegaly, or palpable masses. No guarding. PELVIC: refused EXTREMITIES: No clubbing, cyanosis, or edema. No joint tenderness, effusion, or edema noted. BACK: Nontender without deformity or crepitance. No flank tenderness. NEURO: AOx3. SKIN: No rash or erythema. Initial Vital Signs Initial Vital Signs: Vital Signs Temperature 98.7 F 02/09/19 01:50 Pulse Rate 68 02/09/19 01:50 Respiratory Rate 18 02/09/19 01:50 Blood Pressure 142/78 H 02/09/19 01:50 Pulse Oximetry 100 02/09/19 01:50 Course Orders Ordered: ED Orders 02/09/19 02:05 CT abdomen pelvis w con Stat 02/09/19 02:15 Basic Metabolic Panel Stat Complete Blood Count AUTO DIFF Stat Ondansetron HCl (Zofran) 4 mg IV Q4HR PRN PRN Reason: Nausea And Vomiting Last Admin: 02/09/19 02:55 Dose: 4 mg Discontinued Medications Sodium Chloride (Normal Saline 0.9%) 1,000 mls @ 1,000 mls/hr IV BOLUS ONE Stop: 02/09/19 03:03 Last Admin: 02/09/19 02:54 Dose: 1,000 mls/hr Vital Signs - 8 hr 02/09/19 01:50 Temperature 98.7 F Pulse Rate 68 Respiratory Rate 18 Blood Pressure 142/78 H Pulse Oximetry 100 MDM - Abdominal Pain Differential Diagnosis Differential diagnosis: Likely abdominal pain Medical Records Attestation: I reviewed the patient's medical records. Lab Data Result diagrams: 02/09/19 02:15 02/09/19 02:15 Lab Results 02/09/19 02/09/19 Range/Units 02:15 02:15 WBC 6.7 (4.5-11.0) X10^3/uL RBC 4.57 (4.0-5.2) X10^6/uL Hgb 13.2 (12.0-16.0) g/dL Hct 38.3 (36-46) % MCV 83.7 (80-100) fL MCH 28.9 (26-34) PG MCHC 34.5 (30-36) % RDW 13.1 (11.6-14.8) % Plt Count 250 (150-400) X10^3/uL Neut % (Auto) 57.1 (50-75) % Lymph % (Auto) 33.3 (25-40) % [place] % (Auto) 6.1 (3-14) % Eos % (Auto) 2.7 (2-4) % Baso % (Auto) 0.8 (0-2) % Neut # (Auto) 3900 (9891-3533) /uL Lymph # (Auto) 2200 (8676-7984) /uL [place] # (Auto) 400 (0-900) /uL Eos # (Auto) 200 (0-450) /uL Baso # (Auto) 100 (0-100) /uL Sodium 139 (137-145) mmol/L Potassium 3.6 (3.4-5.1) mmol/L Chloride 105 (98-107) mmol/L Carbon Dioxide 25 (22-32) mmol/L BUN 18 H (7-17) mg/dL Creatinine 0.70 (0.52-1.04) mg/dL Estimated GFR > 60.0 (>60) mL/min BUN/Creatinine Ratio 25.7 H (6-22) Glucose 96 (70-100) mg/dL Calcium 9.1 (8.4-10.2) mg/dL Imaging Data CT scan - abdomen: Radiologist's impression: No acute abnormalities, stable indeterminate left lower pulmonary nodule, mild colonic diverticulosis without diverticulitis, status post hysterectomy [facility] Narrative Medical decision making narrative: 28-year-old female presents with vaginal and lower abdominal pain after intercourse a few days ago. Her abdomen is soft but tender. No ongoing bleeding. CT is unremarkable as were labs. When attempting to get set up for pelvic exam the patient refused and insisted upon leaving. She was quite tearful and was not interested in holding conversation. Discharge Plan Departure Patient Disposition: Home Clinical Impression: Vaginal pain Instructions: DI for Pelvic Pain Activity Restrictions/Additional Instructions: *You have been diagnosed with [postcoital pelvic pain ] *What to do: *continue to take medications as directed *Follow up with your primary care provider in 2-3 days, call for an appointment. Let them know you were seen in the Emergency Department and that we ask that you be seen in follow up *Return to ER if you should have any new, worsening or concerning symptoms Prescriptions: No Action buspirone 15 MG tablet 15 mg PO BID Qty: 60 RF: 1 hydrocortisone [Proctosol HC] 2.5 % cream with perineal applicator 1 applictn NV BID PRN (Reason: hemorrhoids) Qty: 30 RF: 1 albuterol sulfate [Proventil HFA] 90 mcg/actuation HFA aerosol inhaler 2 puff INHALATION Q4HP PRN (Reason: shortness of breath or wheezing) Qty: 3 RF: 3 naproxen [Naprosyn] 500 mg tablet 500 mg PO BID PRN (Reason: painful procedure) Qty: 30 RF: 0 ibuprofen 600 mg tablet 600 mg PO QID PRN (Reason: pain) Qty: 20 RF: 0 zolpidem 5 mg tablet 5 mg PO BEDTIME PRN (Reason: insomnia) Qty: 30 RF: 0 naproxen [Naprosyn] 500 mg tablet 500 mg PO BID PRN (Reason: pain) Qty: 30 RF: 0 lidocaine 5 % ointment 1 applictn TOP QID PRN (Reason: pain) Qty: 30 RF: 1 oxycodone 5 mg tablet 5 mg PO Q4-6H PRN (Reason: painful procedure) Qty: 60 RF: 0 Referrals: Kayla Yu MD [Primary Care Provider] -
[2019-02-09 03:43] VITALS: BP 132/86; PULSE 82; RESP 18; O2SAT 96
--- NOTE | 2019-02-09 04:42 | PC.NURSE ---
Pt sleeping with eupnea but arousable by verbal and touch. VS obtained and noted
--- NOTE | 2019-04-17 17:42 | PC.NURSE ---
Per Darren RN, IV NS completed at 0330 on 02/09/2019 with 1000ml completed
== END 2019-02-09 03:43 | disposition home or self-care (01) ==
PROVIDERS: Emergency Provider Emergency Medicine; PCP Family Medicine
DX: R10.2 Pelvic and perineal pain (principal)
CPT/HCPCS: 36591; 74177; 80048; 85025; 96361; 96374; 99282; 99284; J2405; Q9967

== ENCOUNTER 2019-03-04 16:04 | Emergency (ER) | payer OTHER, MEDICAID, SELFPAY ==
[2018-12-27 13:49] VITALS: BMI 27.8
[2019-03-04 16:05] VITALS: BP 131/84; PULSE 81; RESP 20; TEMP 37.6; O2SAT 100
--- NOTE | 2019-03-04 16:25 | ED.ABDPAIN ---
HPI - Abdominal Pain General Chief Complaint: Abdominal Pain Stated Complaint: THINKS SHE HAS SALMONELLA POISING Time Seen by Provider: 03/04/19 16:14 Source: patient Mode of arrival: ambulatory Limitations: no limitations History of Present Illness HPI narrative: Patient is a 28-year-old female crying uncontrollably and severe abdominal pain convinced that she has some mental a poisoning after rest doing chickens 3 days ago. She has vomited numerous times she has had 2 episodes of bloody diarrhea once yesterday and once this morning. She says she has severe pain she can no longer take the pain anymore. She has not had any fever. Previously had a hysterectomy and hemorrhoidectomy. MD complaint: abdominal pain Onset (ago): day(s) (3) Pain Consistency: constant Severity: severe Severity scale (1-10): >10 Quality: sharp Radiation: none Migration to: no migration Associated symptoms: nausea, vomiting and diarrhea Related Data Previous Rx's Medication Instructions Recorded zolpidem 5 mg tablet 5 mg PO BEDTIME PRN #30 tab 02/20/19 hydrocodone-acetaminophen [[place]] 1 tab PO Q6H PRN #10 tab 03/04/19 ondansetron 4 mg PO Q6-8H PRN #10 tab 03/04/19 Allergies Allergy/AdvReac Type Severity Reaction Status Date / Time Penicillins Allergy Intermediate HIVES, Verified 02/20/19 10:55 LUNGS SWELL amoxicillin [AMOXICILLIN] Allergy Mild HIVES, Verified 02/20/19 10:55 HARD TO BREATH ampicillin [AMPICILLIN] Allergy Mild HIVES, Verified 02/20/19 10:55 HARD TO BREATH Review of Systems Review of Systems GENERAL: Denies chills, fatigue, malaise, fever, sweats, travel HEENT: Denies sinus pain, ear pain, sore throat, difficulty swallowing, neck pain RESPIRATORY: Denies dyspnea, cough, wheezing, hemoptysis, sputum. CARDIOVASCULAR: Denies chest pain, palpitations, orthopnea, edema GASTROINTESTINAL: See HPI : Denies dysuria, frequency, incontinence, hematuria, urinary retention, flank pain. MUSCULOSKELETAL: Denies weakness, joint pain, or bony pain SKIN: No rash, no erythema, no pruritus NEUROLOGIC: Denies weakness, dizziness, headache, numbness, change in speech, confusion PSYCHIATRIC: No concerning psychosocial issues. 12 point review of systems is negative except for those stated above and HPI [facility] Medical History Diverticulosis (Acute) Dysmenorrhea (Acute) Hemorrhoids (Acute) History of hysterectomy (Acute) History of suicidal ideation (Acute) Menometrorrhagia (Acute) Anxiety (Chronic) Asthma (Chronic) Bipolar disorder (Chronic) Depression (Chronic) Substance abuse (Chronic) Chicken pox (Resolved) History of Helicobacter pylori infection (Resolved) Hx of hysterectomy (Resolved) Spontaneous vaginal delivery (Resolved) Surgical History History of surgery (Acute) Anesthesia (Resolved) History of surgery (Resolved ~2002) History of surgery on arm (Resolved ~2000) Status post laparoscopy (Resolved 2014) Status post tubal ligation (Resolved 03/25/16) Family History Mother Age: 57 Type 2 diabetes mellitus Hypertension Bipolar disorder Brother No problems noted. Father Hypertension Grandfather Lung cancer Grandmother No problems noted. Grandfather No problems noted. Grandmother Stroke Social History household members: spouse and children Smoking Status: Current some day smoker alcohol intake: never Family History Mother Age: 57 Type 2 diabetes mellitus Hypertension Bipolar disorder Brother No problems noted. Father Hypertension Grandfather Lung cancer Grandmother No problems noted. Grandfather No problems noted. Grandmother Stroke Social History household members: spouse and children Smoking Status: Current some day smoker alcohol intake: never Exam Initial Vital Signs Initial Vital Signs: Vital Signs Temperature 99.7 F H 03/04/19 16:05 Pulse Rate 81 03/04/19 16:05 Respiratory Rate 20 03/04/19 16:05 Blood Pressure 131/84 03/04/19 16:05 Pulse Oximetry 100 03/04/19 16:05 GENERAL: Crying uncontrollably alert and oriented female HEENT: Head atraumatic,EOMI, pupils reactive, face symmetric CARDIOVASCULAR: Regular rate and rhythm without murmurs, rubs or gallops. RESPIRATORY: Breath sounds equal bilaterally, no wheezes rales or rhonchi. ABDOMEN: Soft, severe diffuse tenderness no localization of pain no guarding no rebound does seem to be more in epigastric and upper abdomen but it is really all over : No CVA tenderness EXTREMITIES: Normal range of motion, no clubbing or edema. Neurovascularly intact NEUROLOGICAL: Alert and oriented x4.Normal gait and speech. Cranial nerves II through XII grossly intact. SKIN: Warm, dry, no laceration, no petechiae, no rashes or lesions. Course Orders Ordered: Discontinued Medications Hydromorphone HCl (Dilaudid) 1 mg IV NOW ONE Stop: 03/04/19 16:26 Last Admin: 03/04/19 16:30 Dose: 1 mg Sodium Chloride (Normal Saline 0.9%) 1,000 mls @ 1,000 mls/hr IV BOLUS ONE Stop: 03/04/19 17:24 Last Infusion: 03/04/19 18:02 Dose: 0 mls/hr Admin: 03/04/19 16:30 Dose: 1,000 mls/hr Ketorolac Tromethamine (Toradol) 30 mg IV NOW ONE Stop: 03/04/19 18:49 Last Admin: 03/04/19 18:57 Dose: 30 mg Ondansetron HCl (Zofran) 4 mg IV NOW ONE Stop: 03/04/19 16:26 Last Admin: 03/04/19 16:30 Dose: 4 mg Ondansetron HCl (Zofran) 4 mg IV NOW ONE Stop: 03/04/19 18:49 Last Admin: 03/04/19 18:57 Dose: 4 mg Pantoprazole Sodium (Protonix) 40 mg IV NOW ONE Stop: 03/04/19 16:26 Last Admin: 03/04/19 16:30 Dose: 40 mg Vital Signs - 8 hr 03/04/19 16:05 03/04/19 16:51 Temperature 99.7 F H Pulse Rate 81 74 Respiratory Rate 20 16 Blood Pressure 131/84 Blood Pressure [Right Arm] 116/56 L Pulse Oximetry 100 98 MDM - Abdominal Pain Lab Data Attestation: I reviewed the patient's lab results. Result diagrams: 03/04/19 16:20 03/04/19 16:20 Lab Results 03/04/19 03/04/19 Range/Units 16:20 16:20 WBC 12.4 H (4.5-11.0) X10^3/uL RBC 4.85 (4.0-5.2) X10^6/uL Hgb 13.9 (12.0-16.0) g/dL Hct 40.9 (36-46) % MCV 84.3 (80-100) fL MCH 28.6 (26-34) PG MCHC 33.9 (30-36) % RDW 13.4 (11.6-14.8) % Plt Count 282 (150-400) X10^3/uL Neut % (Auto) 92.3 H (50-75) % Lymph % (Auto) 4.8 L (25-40) % [place] % (Auto) 2.6 L (3-14) % Eos % (Auto) 0.0 L (2-4) % Baso % (Auto) 0.3 (0-2) % Neut # (Auto) 87104 H (3922-7959) /uL Lymph # (Auto) 600 L (8534-2738) /uL [place] # (Auto) 300 (0-900) /uL Eos # (Auto) 0 (0-450) /uL Baso # (Auto) 0 (0-100) /uL Sodium 140 (137-145) mmol/L Potassium 3.9 (3.4-5.1) mmol/L Chloride 106 (98-107) mmol/L Carbon Dioxide 18 L (22-32) mmol/L BUN 17 (7-17) mg/dL Creatinine 0.70 (0.52-1.04) mg/dL Estimated GFR > 60.0 (>60) mL/min BUN/Creatinine Ratio 24.3 H (6-22) Glucose 149 H (70-100) mg/dL Calcium 9.9 (8.4-10.2) mg/dL Total Bilirubin 0.8 (0.2-1.3) mg/dL AST 46 H (14-36) IU/L ALT 29 (9-52) IU/L Alkaline Phosphatase 71 (38-126) U/L Total Protein 8.7 H (6.3-8.2) g/dL Albumin 5.2 H (3.5-5.0) g/dL Globulin 3.5 (1.7-4.1) g/dL Albumin/Globulin Ratio 1.5 (1.0-2.8) Lipase 39 (23-300) U/L Imaging Data CT scan - abdomen: Radiologist's impression: PROCEDURE: CT ABDOMEN PELVIS W CON INDICATIONS: severe abdominal pain TECHNIQUE: After the administration of intravenous contrast, 5 mm thick sections acquired from the diaphragm to the symphysis. 5 mm coronal and sagittal reformats were acquired. For radiation dose reduction, the following was used: automated exposure control, adjustment of mA and/or kV according to patient size. COMPARISON: [facility], CT, ABDOMEN/PELVIS WITH CONTRAST, 11/22/2017, 12:17. [facility], CT, ABDOMEN/PELVIS WITH CONTRAST, 04/17/2015, 10:35. [facility], CT, ABDOMEN/PELVIS WITH CONTRAST, 05/11/2012, 13:17. [facility], CT, CT ABDOMEN PELVIS W CON, 02/09/2019, 2:06. FINDINGS: Image quality: Excellent. ABDOMEN: Lung bases: There is a 7 mm left lower lobe nodule, unchanged since 04/17/2015. Lung bases are otherwise clear. Heart size is normal. Solid organs: Liver is normal in size and enhancement. Gallbladder is normal. Biliary system is non dilated. Pancreas enhances normally. Spleen is normal in size and enhancement. No adrenal nodules. Kidneys demonstrate normal size and enhancement, without hydronephrosis. Peritoneum and bowel: There is mild gastric antral thickening. Bowel loops demonstrate normal wall thickness and caliber. Normal appendix. No free fluid or air. Nodes and vessels: No retroperitoneal or mesenteric adenopathy by size criteria. Aorta and inferior vena cava are normal in size. Miscellaneous: No ventral hernias. PELVIS: Genitourinary: Bladder wall thickness is normal. Miscellaneous: No inguinal hernias or adenopathy. Bones: No suspicious bony lesions. No vertebral body compression fractures. IMPRESSION: 1. Mild gastric antral thickening suggesting gastritis. 2. Normal appendix. 3. Stable 7 mm left lower lobe lung nodule, most likely benign. Dictated by: Roderick Navarro M.D. on 03/04/2019 at 17:51 MDM Narrative Medical decision making narrative: Patient's pain is overall improved after Dilaudid. I discussed with her that her symptoms are not necessarily correlating with salmonella. However I cannot completely rule it out without a stool sample. She understands this. She is actually much more calm and cooperative. She says that she would like to follow up with her PCP and have more testing done anyway. I discussed her blood work results and CT results with her and her mother. His at this time she is not significantly dehydrated or anemic. No sign of renal failure. She is able to tolerate fluids and feels ready and able to go home. Discharge Plan Departure Patient Disposition: Home Clinical Impression: Gastroenteritis Discharge Date/Time: 03/04/19 19:26 Interventions: ED Discharge Assessment Last Done: 03/04/19 19:26 Instructions: DI for Viral Gastroenteritis -- Adult Activity Restrictions/Additional Instructions: 1) You have been diagnosed with gastroenteritis 2) What to do: Drink frequent but small amounts of fluids. I recommend Gatorade or a Gatorade-like product, as it has small amounts of sugar and salts that improve fluid retention. 3) Take medications as directed Zofran 4 mg every 6-8 hours if needed for nausea vomiting norco 1 tab every 6 hours if needed for severe pain 4) Follow up with your primary care provider in 2-3 days 5) Return to ER if you should have any new or worsening symptoms such as, unable to hold down fluids despite use of anti-nausea medications and the small volume oral rehydration strategy. CONTROLLED SUBSTANCE DISCHARGE (Narcotoic/benzodiazepine/Flexeril/Phenergan) 1. You have been prescribed narcotic medications, it does have acetaminophen/Tylenol/paracetamol in it so do not take extra Tylenol or Tylenol containing products 2. Please understand that we cannot provide further refills of narcotics, benzodiazepines or controlled substances through the ED and her pain management will need to be through your provider. 3. While on these medications you cannot drive or operate heavy machinery. 4. You cannot sign legal documents or perform any duties such as this. 5. As long as you're taking opiate pain medications he should also be taking a stool softener such as Colace, Dulcolax, MiraLAX or prune juice, to help avoid constipation. Prescriptions: New hydrocodone-acetaminophen [[place]] 5-325 mg tablet 1 tab PO Q6H PRN (Reason: pain) Qty: 10 RF: 0 ondansetron 4 mg tablet,disintegrating 4 mg PO Q6-8H PRN (Reason: nausea and vomiting) Qty: 10 RF: 0 No Action zolpidem 5 mg tablet 5 mg PO BEDTIME PRN (Reason: insomnia) Qty: 30 RF: 2 Referrals: Kayla Yu MD [Primary Care Provider] -
[2019-03-04] MEDS: PANTOPRAZOLE 40 MG VIAL IV (16:30)
[2019-03-04] MEDS: ONDANSETRON 4 MG/2 ML INJ IV ×2 (16:30→18:57)
[2019-03-04] MEDS: HYDROMORPHONE 1 MG INJ IV (16:30)
[2019-03-04] MEDS: SODIUM CHLORIDE 0.9% 1,000 ML 1000 ML IV (16:30)
--- NOTE | 2019-03-04 16:32 | ED_ITS ---
HPI - Abdominal Pain General Chief Complaint: Abdominal Pain Stated Complaint: THINKS SHE HAS SALMONELLA POISING Time Seen by Provider: 03/04/19 16:14 Source: patient Mode of arrival: ambulatory Limitations: no limitations History of Present Illness HPI narrative: Patient is a 28-year-old female crying uncontrollably and severe abdominal pain convinced that she has some mental a poisoning after rest doing chickens 3 days ago. She has vomited numerous times she has had 2 episodes of bloody diarrhea once yesterday and once this morning. She says she has severe pain she can no longer take the pain anymore. She has not had any fever. Previously had a hysterectomy and hemorrhoidectomy. MD complaint: abdominal pain Onset (ago): day(s) (3) Pain Consistency: constant Severity: severe Severity scale (1-10): >10 Quality: sharp Radiation: none Migration to: no migration Associated symptoms: nausea, vomiting and diarrhea Related Data Previous Rx's Medication Instructions Recorded zolpidem 5 mg tablet 5 mg PO BEDTIME PRN #30 tab 02/20/19 hydrocodone-acetaminophen [Newton] 1 tab PO Q6H PRN #10 tab 03/04/19 ondansetron 4 mg PO Q6-8H PRN #10 tab 03/04/19 Allergies Allergy/AdvReac Type Severity Reaction Status Date / Time Penicillins Allergy Intermediate HIVES, Verified 02/20/19 10:55 LUNGS SWELL amoxicillin [AMOXICILLIN] Allergy Mild HIVES, Verified 02/20/19 10:55 HARD TO BREATH ampicillin [AMPICILLIN] Allergy Mild HIVES, Verified 02/20/19 10:55 HARD TO BREATH Review of Systems Review of Systems GENERAL: Denies chills, fatigue, malaise, fever, sweats, travel HEENT: Denies sinus pain, ear pain, sore throat, difficulty swallowing, neck pain RESPIRATORY: Denies dyspnea, cough, wheezing, hemoptysis, sputum. CARDIOVASCULAR: Denies chest pain, palpitations, orthopnea, edema GASTROINTESTINAL: See HPI : Denies dysuria, frequency, incontinence, hematuria, urinary retention, flank pain. MUSCULOSKELETAL: Denies weakness, joint pain, or bony pain SKIN: No rash, no erythema, no pruritus NEUROLOGIC: Denies weakness, dizziness, headache, numbness, change in speech, confusion PSYCHIATRIC: No concerning psychosocial issues. 12 point review of systems is negative except for those stated above and HPI [facility] Medical History Diverticulosis (Acute) Dysmenorrhea (Acute) Hemorrhoids (Acute) History of hysterectomy (Acute) History of suicidal ideation (Acute) Menometrorrhagia (Acute) Anxiety (Chronic) Asthma (Chronic) Bipolar disorder (Chronic) Depression (Chronic) Substance abuse (Chronic) Chicken pox (Resolved) History of Helicobacter pylori infection (Resolved) Hx of hysterectomy (Resolved) Spontaneous vaginal delivery (Resolved) Surgical History History of surgery (Acute) Anesthesia (Resolved) History of surgery (Resolved ~2002) History of surgery on arm (Resolved ~2000) Status post laparoscopy (Resolved 2014) Status post tubal ligation (Resolved 03/25/16) Family History Mother Age: 57 Type 2 diabetes mellitus Hypertension Bipolar disorder Brother No problems noted. Father Hypertension Grandfather Lung cancer Grandmother No problems noted. Grandfather No problems noted. Grandmother Stroke Social History household members: spouse and children Smoking Status: Current some day smoker alcohol intake: never Family History Mother Age: 57 Type 2 diabetes mellitus Hypertension Bipolar disorder Brother No problems noted. Father Hypertension Grandfather Lung cancer Grandmother No problems noted. Grandfather No problems noted. Grandmother Stroke Social History household members: spouse and children Smoking Status: Current some day smoker alcohol intake: never Exam Initial Vital Signs Initial Vital Signs: Vital Signs Temperature 99.7 F H 03/04/19 16:05 Pulse Rate 81 03/04/19 16:05 Respiratory Rate 20 03/04/19 16:05 Blood Pressure 131/84 03/04/19 16:05 Pulse Oximetry 100 03/04/19 16:05 GENERAL: Crying uncontrollably alert and oriented female HEENT: Head atraumatic,EOMI, pupils reactive, face symmetric CARDIOVASCULAR: Regular rate and rhythm without murmurs, rubs or gallops. RESPIRATORY: Breath sounds equal bilaterally, no wheezes rales or rhonchi. ABDOMEN: Soft, severe diffuse tenderness no localization of pain no guarding no rebound does seem to be more in epigastric and upper abdomen but it is really all over : No CVA tenderness EXTREMITIES: Normal range of motion, no clubbing or edema. Neurovascularly intact NEUROLOGICAL: Alert and oriented x4.Normal gait and speech. Cranial nerves II through XII grossly intact. SKIN: Warm, dry, no laceration, no petechiae, no rashes or lesions. Course Orders Ordered: Discontinued Medications Hydromorphone HCl (Dilaudid) 1 mg IV NOW ONE Stop: 03/04/19 16:26 Last Admin: 03/04/19 16:30 Dose: 1 mg Sodium Chloride (Normal Saline 0.9%) 1,000 mls @ 1,000 mls/hr IV BOLUS ONE Stop: 03/04/19 17:24 Last Infusion: 03/04/19 18:02 Dose: 0 mls/hr Admin: 03/04/19 16:30 Dose: 1,000 mls/hr Ketorolac Tromethamine (Toradol) 30 mg IV NOW ONE Stop: 03/04/19 18:49 Last Admin: 03/04/19 18:57 Dose: 30 mg Ondansetron HCl (Zofran) 4 mg IV NOW ONE Stop: 03/04/19 16:26 Last Admin: 03/04/19 16:30 Dose: 4 mg Ondansetron HCl (Zofran) 4 mg IV NOW ONE Stop: 03/04/19 18:49 Last Admin: 03/04/19 18:57 Dose: 4 mg Pantoprazole Sodium (Protonix) 40 mg IV NOW ONE Stop: 03/04/19 16:26 Last Admin: 03/04/19 16:30 Dose: 40 mg Vital Signs - 8 hr 03/04/19 16:05 03/04/19 16:51 Temperature 99.7 F H Pulse Rate 81 74 Respiratory Rate 20 16 Blood Pressure 131/84 Blood Pressure [Right Arm] 116/56 L Pulse Oximetry 100 98 MDM - Abdominal Pain Lab Data Attestation: I reviewed the patient's lab results. Result diagrams: 03/04/19 16:20 03/04/19 16:20 Lab Results 03/04/19 03/04/19 Range/Units 16:20 16:20 WBC 12.4 H (4.5-11.0) X10^3/uL RBC 4.85 (4.0-5.2) X10^6/uL Hgb 13.9 (12.0-16.0) g/dL Hct 40.9 (36-46) % MCV 84.3 (80-100) fL MCH 28.6 (26-34) PG MCHC 33.9 (30-36) % RDW 13.4 (11.6-14.8) % Plt Count 282 (150-400) X10^3/uL Neut % (Auto) 92.3 H (50-75) % Lymph % (Auto) 4.8 L (25-40) % [place] % (Auto) 2.6 L (3-14) % Eos % (Auto) 0.0 L (2-4) % Baso % (Auto) 0.3 (0-2) % Neut # (Auto) 90241 H (8748-1821) /uL Lymph # (Auto) 600 L (0084-9300) /uL [place] # (Auto) 300 (0-900) /uL Eos # (Auto) 0 (0-450) /uL Baso # (Auto) 0 (0-100) /uL Sodium 140 (137-145) mmol/L Potassium 3.9 (3.4-5.1) mmol/L Chloride 106 (98-107) mmol/L Carbon Dioxide 18 L (22-32) mmol/L BUN 17 (7-17) mg/dL Creatinine 0.70 (0.52-1.04) mg/dL Estimated GFR > 60.0 (>60) mL/min BUN/Creatinine Ratio 24.3 H (6-22) Glucose 149 H (70-100) mg/dL Calcium 9.9 (8.4-10.2) mg/dL Total Bilirubin 0.8 (0.2-1.3) mg/dL AST 46 H (14-36) IU/L ALT 29 (9-52) IU/L Alkaline Phosphatase 71 (38-126) U/L Total Protein 8.7 H (6.3-8.2) g/dL Albumin 5.2 H (3.5-5.0) g/dL Globulin 3.5 (1.7-4.1) g/dL Albumin/Globulin Ratio 1.5 (1.0-2.8) Lipase 39 (23-300) U/L Imaging Data CT scan - abdomen: Radiologist's impression: PROCEDURE: CT ABDOMEN PELVIS W CON INDICATIONS: severe abdominal pain TECHNIQUE: After the administration of intravenous contrast, 5 mm thick sections acquired from the diaphragm to the symphysis. 5 mm coronal and sagittal reformats were acquired. For radiation dose reduction, the following was used: automated exposure control, adjustment of mA and/or kV according to patient size. COMPARISON: [facility], CT, ABDOMEN/PELVIS WITH CONTRAST, 11/22/2017, 12:17. [facility], CT, ABDOMEN/PELVIS WITH CONTRAST, 04/17/2015, 10:35. [facility], CT, ABDOMEN/PELVIS WITH CONTRAST, 05/11/2012, 13:17. [facility], CT, CT ABDOMEN PELVIS W CON, 02/09/2019, 2:06. FINDINGS: Image quality: Excellent. ABDOMEN: Lung bases: There is a 7 mm left lower lobe nodule, unchanged since 04/17/2015. Lung bases are otherwise clear. Heart size is normal. Solid organs: Liver is normal in size and enhancement. Gallbladder is normal. Biliary system is non dilated. Pancreas enhances normally. Spleen is normal in size and enhancement. No adrenal nodules. Kidneys demonstrate normal size and enhancement, without hydronephrosis. Peritoneum and bowel: There is mild gastric antral thickening. Bowel loops demonstrate normal wall thickness and caliber. Normal appendix. No free fluid or air. Nodes and vessels: No retroperitoneal or mesenteric adenopathy by size criteria. Aorta and inferior vena cava are normal in size. Miscellaneous: No ventral hernias. PELVIS: Genitourinary: Bladder wall thickness is normal. Miscellaneous: No inguinal hernias or adenopathy. Bones: No suspicious bony lesions. No vertebral body compression fractures. IMPRESSION: 1. Mild gastric antral thickening suggesting gastritis. 2. Normal appendix. 3. Stable 7 mm left lower lobe lung nodule, most likely benign. Dictated by: Roderick Navarro M.D. on 03/04/2019 at 17:51 MDM Narrative Medical decision making narrative: Patient's pain is overall improved after Dilaudid. I discussed with her that her symptoms are not necessarily correlating with salmonella. However I cannot completely rule it out without a stool sample. She understands this. She is actually much more calm and cooperative. She says that she would like to follow up with her PCP and have more testing done anyway. I discussed her blood work results and CT results with her and her mother. His at this time she is not significantly dehydrated or anemic. No sign of renal failure. She is able to tolerate fluids and feels ready and able to go home. Discharge Plan Departure Patient Disposition: Home Clinical Impression: Gastroenteritis Discharge Date/Time: 03/04/19 19:26 Interventions: ED Discharge Assessment Last Done: 03/04/19 19:26 Instructions: DI for Viral Gastroenteritis -- Adult Activity Restrictions/Additional Instructions: 1) You have been diagnosed with gastroenteritis 2) What to do: Drink frequent but small amounts of fluids. I recommend Gatorade or a Gatorade-like product, as it has small amounts of sugar and salts that improve fluid retention. 3) Take medications as directed Zofran 4 mg every 6-8 hours if needed for nausea vomiting norco 1 tab every 6 hours if needed for severe pain 4) Follow up with your primary care provider in 2-3 days 5) Return to ER if you should have any new or worsening symptoms such as, unable to hold down fluids despite use of anti-nausea medications and the small volume oral rehydration strategy. CONTROLLED SUBSTANCE DISCHARGE (Narcotoic/benzodiazepine/Flexeril/Phenergan) 1. You have been prescribed narcotic medications, it does have acetamino phen/Tylenol/paracetamol in it so do not take extra Tylenol or Tylenol containing products 2. Please understand that we cannot provide further refills of narcotics, benzodiazepines or controlled substances through the ED and her pain management will need to be through your provider. 3. While on these medications you cannot drive or operate heavy machinery. 4. You cannot sign legal documents or perform any duties such as this. 5. As long as you're taking opiate pain medications he should also be taking a stool softener such as Colace, Dulcolax, MiraLAX or prune juice, to help avoid constipation. Prescriptions: New hydrocodone-acetaminophen [Newton] 5-325 mg tablet 1 tab PO Q6H PRN (Reason: pain) Qty: 10 RF: 0 ondansetron 4 mg tablet,disintegrating 4 mg PO Q6-8H PRN (Reason: nausea and vomiting) Qty: 10 RF: 0 No Action zolpidem 5 mg tablet 5 mg PO BEDTIME PRN (Reason: insomnia) Qty: 30 RF: 2 Referrals: Kayla Yu MD [Primary Care Provider] -
[2019-03-04 16:51] VITALS: BP 116/56; PULSE 74; RESP 16; O2SAT 98
[2019-03-04 16:51] LABS: Add Manual Diff / Slide Review NO; Basophils Absolute Auto 0 /uL (0-100); Basophils Percent Auto 0.3 % (0-2); Eosinophils Absolute Auto 0 /uL (0-450); Hematocrit 40.9 % (36-46); Hemoglobin 13.9 g/dL (12.0-16.0); Lymphocytes Absolute Auto 600 /uL (1100-4500); Lymphocytes Percent Auto 4.8 % (25-40); Mean Corpuscular HGB Conc 33.9 % (30-36); Mean Corpuscular Hemoglobin 28.6 PG (26-34); Mean Corpuscular Volume 84.3 fL (80-100); Monocytes Absolute Auto 300 /uL (0-900); Monocytes Percent Auto 2.6 % (3-14); Neutrophils Absolute Auto 11500 /uL (1500-7000); Neutrophils Percent Auto 92.3 % (50-75); Platelet Count 282 X10^3/uL (150-400); Red Blood Cell Count 4.85 X10^6/uL (4.0-5.2); Red Cell Distribution Width 13.4 % (11.6-14.8); White Blood Cell Count 12.4 X10^3/uL (4.5-11.0)
[2019-03-04 17:06] LABS: Alanine Aminotransferase 29 IU/L (9-52); Albumin 5.2 g/dL (3.5-5.0); Albumin Globulin Ratio 1.5 (1.0-2.8); Alkaline Phosphatase 71 U/L (38-126); Aspartate Aminotransferase 46 IU/L (14-36); BUN Creatinine Ratio 24.3 (6-22); Bilirubin Total 0.8 mg/dL (0.2-1.3); Blood Urea Nitrogen 17 mg/dL (7-17); Calcium 9.9 mg/dL (8.4-10.2); Carbon Dioxide 18 mmol/L (22-32); Chloride 106 mmol/L (98-107); Estimated Glomerular Filt Rate > 60.0 mL/min (>60); Globulin 3.5 g/dL (1.7-4.1); Glucose 149 mg/dL (70-100); HEMOLYSIS 29 (0-50); Lipase 39 U/L (23-300); Potassium 3.9 mmol/L (3.4-5.1); Sodium 140 mmol/L (137-145); Total Protein 8.7 g/dL (6.3-8.2)
[2019-03-04 17:24] VITALS: BP 132/78; PULSE 75; RESP 17; O2SAT 100
[2019-03-04 18:00] VITALS: BP 120/57; PULSE 72; RESP 14; O2SAT 98
[2019-03-04] MEDS: KETOROLAC 60 MG/2 ML VIAL 30 MG IV (18:57)
[2019-03-04 19:26] VITALS: BP 124/74; PULSE 88; RESP 20; O2SAT 99
== END 2019-03-04 19:26 | disposition home or self-care (01) ==
PROVIDERS: Emergency Provider Emergency Medicine; PCP Family Medicine
DX: K52.9 Noninfective gastroenteritis and colitis, unspecified (principal); K92.1 Melena
CPT/HCPCS: 36591; 74177; 80053; 83690; 85025; 96361; 96374; 96375; 96376; 99283; 99284; C9113; J1170; J1885; J2405; Q9967

== ENCOUNTER 2019-04-12 10:56 | Emergency (ER) | payer OTHER, MEDICAID, SELFPAY ==
[2018-12-27 13:49] VITALS: BMI 27.8
[2019-04-12] VITALS (7 sets, daily range): BP systolic 92–147; BP diastolic 49–132; PULSE 59–104; RESP 13–30; TEMP 36.3; O2SAT 98–100
[2019-04-12] MEDS: ONDANSETRON 4 MG/2 ML INJ IV ×2 (11:18→12:43)
[2019-04-12] MEDS: KETOROLAC 60 MG/2 ML VIAL 30 MG IV (11:18)
--- NOTE | 2019-04-12 11:20 | ED_ITS ---
HPI - Abdominal Pain General Chief Complaint: Abdominal Pain Stated Complaint: post surgerys having problems Time Seen by Provider: 04/12/19 11:19 Source: patient and family (they left to take children to school) Mode of arrival: ambulatory Limitations: no limitations History of Present Illness HPI narrative: This is a 28-year-old female comes to the emergency department with complaint of rectal pain. Patient states that she has a fissure. She saw Dr. Lindo, she had hemorrhoid surgery. She did not have resolution of her symptoms and over the last 3 days it has been worse. She states significantly worse today. She has been vomiting. She states she started vomiting because of the pain. She denies any abdominal pain other than discomfort from vomiting. She denies any fevers. No chest pain or shortness of breath. She has had 2 soft bowel movements today but they are quite painful. She was given nifedipine which was not helpful. Related Data Home Medications Medication Instructions Recorded Confirmed nifedipine 1 applic TOPICAL BID 04/12/19 04/12/19 ondansetron 4 mg PO Q6H PRN 04/12/19 04/12/19 Previous Rx's Medication Instructions Recorded hydrocodone-acetaminophen [[place]] 1 tab PO Q6H PRN #10 tab 03/04/19 zolpidem 5 mg tablet 5 mg PO BEDTIME PRN #30 tab 03/19/19 naproxen 500 mg tablet 500 mg PO BID PRN #20 tab 04/03/19 meloxicam [Mobic] 7.5 mg PO DAILY #14 tab 04/12/19 nitroglycerin 1 inch [place] BID PRN #30 gram 04/12/19 Allergies Allergy/AdvReac Type Severity Reaction Status Date / Time Penicillins Allergy Intermediate HIVES, Verified 04/03/19 13:57 LUNGS SWELL amoxicillin [AMOXICILLIN] Allergy Mild HIVES, Verified 04/03/19 13:57 HARD TO BREATH ampicillin [AMPICILLIN] Allergy Mild HIVES, Verified 04/03/19 13:57 HARD TO BREATH Review of Systems Review of Systems ROS Unobtainable: All systems reviewed & are unremarkable except as noted in HPI and below Constitutional Denies chills and Denies fever(s) Cardiovascular Denies chest pain and Denies dyspnea Respiratory Denies dyspnea Gastrointestinal Gastrointestinal: Denies change in bowel habits, Reports tenesmus, Denies change in stool character, Denies diarrhea, Reports nausea and Reports vomiting Genitourinary Denies hematuria, Denies flank pain, Denies urinary incontinence, Denies urinary hesitancy and Denies urinary urgency Musculoskeletal Denies back pain [facility] Medical History Diverticulosis (Acute) Dysmenorrhea (Acute) Hemorrhoids (Acute) History of hysterectomy (Acute) History of suicidal ideation (Acute) Menometrorrhagia (Acute) Anxiety (Chronic) Asthma (Chronic) Bipolar disorder (Chronic) Depression (Chronic) Substance abuse (Chronic) Chicken pox (Resolved) History of Helicobacter pylori infection (Resolved) Hx of hysterectomy (Resolved) Spontaneous vaginal delivery (Resolved) Surgical History History of surgery (Acute) Anesthesia (Resolved) History of surgery (Resolved ~2002) History of surgery on arm (Resolved ~2000) Status post laparoscopy (Resolved 2014) Status post tubal ligation (Resolved 03/25/16) Family History Mother Age: 57 Type 2 diabetes mellitus Hypertension Bipolar disorder Brother No problems noted. Father Hypertension Grandfather Lung cancer Grandmother No problems noted. Grandfather No problems noted. Grandmother Stroke Social History household members: spouse and children Smoking Status: Current some day smoker alcohol intake: never Family History Mother Age: 57 Type 2 diabetes mellitus Hypertension Bipolar disorder Brother No problems noted. Father Hypertension Grandfather Lung cancer Grandmother No problems noted. Grandfather No problems noted. Grandmother Stroke Social History household members: spouse and children Smoking Status: Current some day smoker alcohol intake: never Exam Narrative Exam Narrative: GENERAL: Alert and oriented x three, well-nourished female in moderate distress. Patient is quite agitated. She was yelling at nursing and me throughout the evaluation. Patient seems quite uncomfortable. HEENT: Head normocephalic, atraumatic, EOMI, pupils reactive, face symmetric, moist mucous membranes NECK: Supple, full range of motion CARDIOVASCULAR: Regular rate and rhythm without murmurs, rubs or gallops. RESPIRATORY: Breath sounds equal bilaterally, no wheezes rales or rhonchi. ABDOMEN: Soft, nontender. Normoactive bowel sounds all 4 quadrants. No guarding or rebound, rigidity, no mass. Patient does appear to have a fissure on external exam, she also has some small hemorrhoids that appear soft. There is no blood or stool. Patient defers digital rectal exam and I agree with her level of discomfort at this moment in time. There is no prolapse. : No CVA tenderness EXTREMITIES: Normal range of motion, no clubbing or edema. Neurovascularly intact NEUROLOGICAL: Cranial nerves II through XII grossly intact. Moving all extremities SKIN: Warm, dry, no petechiae, no rashes or lesions. Initial Vital Signs Initial Vital Signs: Vital Signs Pulse Rate 104 H 04/12/19 11:03 Respiratory Rate 22 04/12/19 11:03 Blood Pressure 147/132 H 04/12/19 11:03 Pulse Oximetry 98 04/12/19 11:03 Course Orders Ordered: ED Orders 04/12/19 11:20 Complete Blood Count AUTO DIFF Stat Comprehensive Metabolic Panel Stat Lipase Stat 04/12/19 11:25 XR abdomen min 2V Stat 04/12/19 13:37 CT abdomen pelvis w con Stat Discontinued Medications Hydromorphone HCl (Dilaudid) 1 mg IV NOW ONE Stop: 04/12/19 11:56 Last Admin: 04/12/19 11:56 Dose: 1 mg Hydromorphone HCl (Dilaudid) 1 mg IV NOW ONE Stop: 04/12/19 12:38 Last Admin: 04/12/19 12:43 Dose: 1 mg Sodium Chloride (Normal Saline 0.9%) 1,000 mls @ 1,000 mls/hr IV BOLUS ONE Stop: 04/12/19 12:22 Last Infusion: 04/12/19 12:32 Dose: 0 mls/hr Admin: 04/12/19 11:29 Dose: 1,000 mls/hr Ketorolac Tromethamine (Toradol) 30 mg IV NOW ONE Stop: 04/12/19 11:17 Last Admin: 04/12/19 11:18 Dose: 30 mg Lorazepam (Ativan) 1 mg IV NOW ONE Stop: 04/12/19 11:26 Last Admin: 04/12/19 11:30 Dose: 1 mg Lorazepam (Ativan) 1 mg IV NOW ONE Stop: 04/12/19 13:38 Last Admin: 04/12/19 13:55 Dose: 1 mg Morphine Sulfate (Morphine) 4 mg IV NOW ONE Stop: 04/12/19 11:26 Last Admin: 04/12/19 11:29 Dose: 4 mg Ondansetron HCl (Zofran) 4 mg IV NOW ONE Stop: 04/12/19 11:17 Last Admin: 04/12/19 11:18 Dose: 4 mg Ondansetron HCl (Zofran) 4 mg IV NOW ONE Stop: 04/12/19 12:38 Last Admin: 04/12/19 12:43 Dose: 4 mg Vital Signs - 8 hr 04/12/19 11:03 04/12/19 11:46 04/12/19 11:49 Temperature 97.4 F L Pulse Rate 104 H 83 Respiratory Rate 22 30 H Blood Pressure 147/132 H Blood Pressure [Right Arm] 141/84 H Pulse Oximetry 98 100 04/12/19 12:01 04/12/19 12:37 04/12/19 15:02 Temperature Pulse Rate 87 78 59 L Respiratory Rate 16 20 13 Blood Pressure Blood Pressure [Right Arm] 124/54 L 128/77 92/56 L Pulse Oximetry 99 98 98 04/12/19 16:21 Temperature Pulse Rate 72 Respiratory Rate Blood Pressure Blood Pressure [Right Arm] 111/49 L Pulse Oximetry 98 MDM - Abdominal Pain Lab Data Attestation: I reviewed the patient's lab results. Result diagrams: 04/12/19 11:20 04/12/19 11:20 Lab Results 04/12/19 04/12/19 Range/Units 11:20 11:20 WBC 11.5 H (4.5-11.0) X10^3/uL RBC 4.79 (4.0-5.2) X10^6/uL Hgb 14.0 (12.0-16.0) g/dL Hct 40.1 (36-46) % MCV 83.7 (80-100) fL MCH 29.2 (26-34) PG MCHC 34.9 (30-36) % RDW 13.3 (11.6-14.8) % Plt Count 274 (150-400) X10^3/uL Neut % (Auto) 87.0 H (50-75) % Lymph % (Auto) 9.1 L (25-40) % [place] % (Auto) 3.4 (3-14) % Eos % (Auto) 0.1 L (2-4) % Baso % (Auto) 0.4 (0-2) % Neut # (Auto) 96471 H (6781-7270) /uL Lymph # (Auto) 1000 L (5381-2621) /uL [place] # (Auto) 400 (0-900) /uL Eos # (Auto) 0 (0-450) /uL Baso # (Auto) 0 (0-100) /uL Sodium 141 (137-145) mmol/L Potassium 4.1 (3.4-5.1) mmol/L Chloride 108 H (98-107) mmol/L Carbon Dioxide 22 (22-32) mmol/L BUN 11 (7-17) mg/dL Creatinine 0.80 (0.52-1.04) mg/dL Estimated GFR > 60.0 (>60) mL/min BUN/Creatinine Ratio 13.8 (6-22) Glucose 157 H (70-100) mg/dL Calcium 9.7 (8.4-10.2) mg/dL Total Bilirubin 0.7 (0.2-1.3) mg/dL AST 21 (14-36) IU/L ALT 17 (9-52) IU/L Alkaline Phosphatase 69 (38-126) U/L Total Protein 8.0 (6.3-8.2) g/dL Albumin 4.7 (3.5-5.0) g/dL Globulin 3.3 (1.7-4.1) g/dL Albumin/Globulin Ratio 1.4 (1.0-2.8) Lipase 51 (23-300) U/L Imaging Data Abdominal x-ray: Radiologist's impression: [address] [address] XRay Report Signed Patient: Ruchi Johnson DMR#: [id number] : 1990Acct:[id number] Age/Sex: 28 / FDate of Service: 04/12/19 Loc: ED Accession Number: [id number] Procedure: XR abdomen min 2V Ordering Provider: Cortney Baez D.O. PROCEDURE: XR ABDOMEN MIN 2V INDICATIONS: rectal pain, vomiting. TECHNIQUE: 2 views of the abdomen were acquired. COMPARISON: [facility], KUB XRAY (1 VIEW ABDOMEN), 10/31/2016, 9:13. [facility], , ABDOMEN 2 VIEW, 03/23/2016, 10:01. FINDINGS: Surgical changes and devices: None. Bowel: No pneumoperitoneum. The bowel gas pattern is normal. Soft tissues: No masses; visualized solid organ contours appear normal in size. No suspicious abdominal calcifications. Bones: No suspicious bony abnormalities. IMPRESSION: No acute disease process. If there is continued clinical concern for pathology, and CT scan abdomen/pelvis should be considered for further evaluation. Dictated by: Wendie Godinez MD, PhD on 04/12/2019 at 12:13 Approved by: Wendie Godinez MD, PhD on 04/12/2019 at 12:14 CT scan - abdomen: Radiologist's impression: [place] [address] CT Scan Report Signed Patient: Ruchi Johnson DMR#: [id number] : 1990Acct:[id number] Age/Sex: 28 FDate of Service: 04/12/19 Loc: ED Accession Number: [id number] Procedure: CT abdomen pelvis w con Ordering Provider: Cortney Baez D.O. PROCEDURE: CT ABDOMEN PELVIS W CON INDICATIONS: rectal pain, vomiting. TECHNIQUE: After the administration of intravenous contrast, 5 mm thick sections acquired f rom the diaphragm to the symphysis. 5 mm coronal and sagittal reformats were acquired. For radiation dose reduction, the following was used: automated exposure control, adjustment of mA and/or kV according to patient size. COMPARISON: [facility], CT, ABDOMEN/PELVIS WITH CONTRAST, 11/22/2017, 12:17. [facility], [place], PELVIC COMPLETE, 11/03/2017, 15:11. [facility], US, ABDOMEN COMPLETE, 11/03/2017, 15:02. [facility], CT, CT ABDOMEN PELVIS W CON, 03/04/2019, 17:16. [facility], CT, CT ABDOMEN PELVIS W CON, 02/09/2019, 2:06. FINDINGS: Image quality: Excellent. ABDOMEN: Lung bases: Lung bases are clear. Heart size is normal. Solid organs: Liver is normal in size and enhancement. Gallbladder appears normal. Biliary system is non dilated. Pancreas enhances normally. Spleen is normal in size and enhancement. No adrenal nodules. Kidneys demonstrate normal size and enhancement, without hydronephrosis. Peritoneum and bowel: Bowel loops demonstrate normal wall thickness and caliber. No free fluid or air. Nodes and vessels: No retroperitoneal or mesenteric adenopathy by size criteria. Aorta and inferior vena cava are normal in size. Miscellaneous: No ventral hernias. PELVIS: Genitourinary: Bladder wall thickness is normal. Prior hysterectomy. Note is made of a 2.2 cm simple appearing water density right adnexal cyst. Miscellaneous: No inguinal hernias or adenopathy. Bones: No suspicious bony lesions. No vertebral body compression fractures. IMPRESSION: Source of current symptoms is not seen. Right adnexal cyst measures 2.2 cm but shows no sign of inflammation or cyst rupture. The rectum visualized appears normal, no colitis is found. Dictated by: Ra Reeves M.D. on 04/12/2019 at 14:45 Approved by: Ra Reeves M.D. on 04/12/2019 at 14:47 [facility] Narrative Medical decision making narrative: I reviewed Dr. Lindo he is visit most recent was on 04/03. She was referred as he was not able to improve patient's symptoms with hemorrhoid repair, he felt that she would not tolerate anoscopy. Referred to a colorectal surgeon. Patient has substance abuse issues and he declined any additional narcotics gave her Naprosyn as well as she had a nifedipine prescription before. Patient was given Toradol and Zofran initially. She still has some dry heaving, she is still quite uncomfortable and was demanding pain medication immediately after the Toradol was given. Was given morphine as well as Ativan. Patient may also have some combination of narcotic withdrawal it is unclear this may be complicating her symptoms. Patient's chart was reviewed. Patient improved after narcotic medication and ativan. Had additional doses of pain medication. Patient is doing better. She does appear somewhat uncomfortable still in started dry heaving. Given additional dose of Ativan and plan for CT abdomen and pelvis. CT abdomen pelvis shows right adnexal cyst which is simple. No signs of rupture or free fluid. They do not see any other changes or changes to the rectum to be causing patient's pain. Discharge Plan Departure Patient Disposition: Home Clinical Impression: Anal or rectal pain Discharge Date/Time: 04/12/19 16:37 Interventions: ED Discharge Assessment Last Done: 04/12/19 16:37 Instructions: Anal Fissure Activity Restrictions/Additional Instructions: Follow-up with the colorectal surgeon that Dr. Lindo has referred you too. Continue home medications as prescribed. Taking medications as prescribed. If you are taking any narcotic pain medic ations it is very important that he take a stool softener or you will have constipation and this will make your symptoms worse. Use rectal nitro as needed for anal fissure. Return to the emergency department for fevers greater than 100.4 F, persistent vomiting, rapidly worsening abdominal pain, if you are unable to have bowel movements, having large amount of rectal bleeding, clots, passing out or other new or concerning symptoms. Prescriptions: New nitroglycerin 0.4 % (w/w) ointment 1 inch W[place] BID PRN (Reason: rectal discomfort) Qty: 30 RF: 0 meloxicam [Mobic] 7.5 mg tablet 7.5 mg PO DAILY Qty: 14 RF: 0 No Action zolpidem 5 mg tablet 5 mg PO BEDTIME PRN (Reason: insomnia) Qty: 30 RF: 2 naproxen [Naprosyn] 500 mg tablet 500 mg PO BID PRN (Reason: pain) Qty: 20 RF: 1 ondansetron 4 mg tablet,disintegrating 4 mg PO Q6H PRN (Reason: nausea and vomiting) RF: 0 nifedipine cream 1 applic topical BID RF: 0 hydrocodone-acetaminophen [[place]] 5-325 mg tablet 1 tab PO Q6H PRN (Reason: pain) Qty: 10 RF: 0 Referrals: Kayla Yu MD [Primary Care Provider] -
--- NOTE | 2019-04-12 11:25 | DI.RAD.S_ITS ---
PROCEDURE: XR ABDOMEN MIN 2V INDICATIONS: rectal pain, vomiting. TECHNIQUE: 2 views of the abdomen were acquired. COMPARISON: [facility], [place], KUB XRAY (1 VIEW ABDOMEN), 10/31/2016, 9:13. [facility], , ABDOMEN 2 VIEW, 03/23/2016, 10:01. FINDINGS: Surgical changes and devices: None. Bowel: No pneumoperitoneum. The bowel gas pattern is normal. Soft tissues: No masses; visualized solid organ contours appear normal in size. No suspicious abdominal calcifications. Bones: No suspicious bony abnormalities. IMPRESSION: No acute disease process. If there is continued clinical concern for pathology, and CT scan abdomen/pelvis should be considered for further evaluation. Dictated by: Wendie Godinez MD, PhD on 04/12/2019 at 12:13 Approved by: Wendie Godinez MD, PhD on 04/12/2019 at 12:14
[2019-04-12] MEDS: MORPHINE 4 MG/ML INJ IV (11:29)
[2019-04-12] MEDS: SODIUM CHLORIDE 0.9% 1,000 ML 1000 ML IV (11:29)
[2019-04-12] MEDS: LORazepam 2 MG/ML INJ 1 MG IV ×2 (11:30→13:55)
[2019-04-12 11:39] LABS: Add Manual Diff / Slide Review NO; Basophils Absolute Auto 0 /uL (0-100); Basophils Percent Auto 0.4 % (0-2); Eosinophils Absolute Auto 0 /uL (0-450); Eosinophils Percent Auto 0.1 % (2-4); Hematocrit 40.1 % (36-46); Lymphocytes Absolute Auto 1000 /uL (1100-4500); Lymphocytes Percent Auto 9.1 % (25-40); Mean Corpuscular HGB Conc 34.9 % (30-36); Mean Corpuscular Hemoglobin 29.2 PG (26-34); Mean Corpuscular Volume 83.7 fL (80-100); Monocytes Absolute Auto 400 /uL (0-900); Monocytes Percent Auto 3.4 % (3-14); Neutrophils Absolute Auto 10000 /uL (1500-7000); Platelet Count 274 X10^3/uL (150-400); Red Blood Cell Count 4.79 X10^6/uL (4.0-5.2); Red Cell Distribution Width 13.3 % (11.6-14.8); White Blood Cell Count 11.5 X10^3/uL (4.5-11.0)
[2019-04-12 11:41] LABS: Alanine Aminotransferase 17 IU/L (9-52); Albumin 4.7 g/dL (3.5-5.0); Albumin Globulin Ratio 1.4 (1.0-2.8); Alkaline Phosphatase 69 U/L (38-126); Aspartate Aminotransferase 21 IU/L (14-36); BUN Creatinine Ratio 13.8 (6-22); Bilirubin Total 0.7 mg/dL (0.2-1.3); Blood Urea Nitrogen 11 mg/dL (7-17); Calcium 9.7 mg/dL (8.4-10.2); Carbon Dioxide 22 mmol/L (22-32); Chloride 108 mmol/L (98-107); Estimated Glomerular Filt Rate > 60.0 mL/min (>60); Globulin 3.3 g/dL (1.7-4.1); Glucose 157 mg/dL (70-100); HEMOLYSIS < 15 (0-50); Lipase 51 U/L (23-300); Potassium 4.1 mmol/L (3.4-5.1); Sodium 141 mmol/L (137-145)
--- NOTE | 2019-04-12 11:41 | PC.NURSE ---
pt raising voice that the pain medicine didn't work, it feels like my butt is ripping i explained it'd only been 1 min. offered another cool cloth, ice pack for rectum or a warm blanket, pt denied the offers. pt asked for more pain medication. reported to dr. dos santos.
[2019-04-12] MEDS: HYDROMORPHONE 1 MG INJ IV ×2 (11:56→12:43)
--- NOTE | 2019-04-12 13:37 | DI.CT.S_ITS ---
PROCEDURE: CT ABDOMEN PELVIS W CON INDICATIONS: rectal pain, vomiting. TECHNIQUE: After the administration of intravenous contrast, 5 mm thick sections acquired from the diaphragm to the symphysis. 5 mm coronal and sagittal reformats were acquired. For radiation dose reduction, the following was used: automated exposure control, adjustment of mA and/or kV according to patient size. COMPARISON: [facility], CT, ABDOMEN/PELVIS WITH CONTRAST, 11/22/2017, 12:17. [facility], [place], PELVIC COMPLETE, 11/03/2017, 15:11. [facility], US, ABDOMEN COMPLETE, 11/03/2017, 15:02. [facility], CT, CT ABDOMEN PELVIS W CON, 03/04/2019, 17:16. [facility], CT, CT ABDOMEN PELVIS W CON, 02/09/2019, 2:06. FINDINGS: Image quality: Excellent. ABDOMEN: Lung bases: Lung bases are clear. Heart size is normal. Solid organs: Liver is normal in size and enhancement. Gallbladder appears normal. Biliary system is non dilated. Pancreas enhances normally. Spleen is normal in size and enhancement. No adrenal nodules. Kidneys demonstrate normal size and enhancement, without hydronephrosis. Peritoneum and bowel: Bowel loops demonstrate normal wall thickness and caliber. No free fluid or air. Nodes and vessels: No retroperitoneal or mesenteric adenopathy by size criteria. Aorta and inferior vena cava are normal in size. Miscellaneous: No ventral hernias. PELVIS: Genitourinary: Bladder wall thickness is normal. Prior hysterectomy. Note is made of a 2.2 cm simple appearing water density right adnexal cyst. Miscellaneous: No inguinal hernias or adenopathy. Bones: No suspicious bony lesions. No vertebral body compression fractures. IMPRESSION: Source of current symptoms is not seen. Right adnexal cyst measures 2.2 cm but shows no sign of inflammation or cyst rupture. The rectum visualized appears normal, no colitis is found. Dictated by: Ra Reeves M.D. on 04/12/2019 at 14:45 Approved by: Ra Reeves M.D. on 04/12/2019 at 14:47
== END 2019-04-12 16:37 | disposition home or self-care (01) ==
PROVIDERS: Emergency Provider Emergency Medicine; PCP Family Medicine
DX: K62.89 Other specified diseases of anus and rectum (principal)
CPT/HCPCS: 36591; 74019; 74177; 80053; 83690; 85025; 96361; 96374; 96375; 96376; 99283; 99284; J1170; J1885; J2060; J2270; J2405; Q9967

== ENCOUNTER 2019-06-29 12:02 | Emergency (ER) | payer OTHER, MEDICAID, SELFPAY ==
[2018-12-27 13:49] VITALS: BMI 27.8
[2019-06-29 12:05] VITALS: BP 138/100; PULSE 80; RESP 32; TEMP 36.7; O2SAT 100
[2019-06-29] MEDS: ONDANSETRON 4 MG/2 ML INJ IV ×2 (12:18→12:58)
[2019-06-29] MEDS: SODIUM CHLORIDE 0.9% 1,000 ML 1000 ML IV (12:18)
[2019-06-29] MEDS: HYDROMORPHONE 1 MG INJ IV (12:18)
--- NOTE | 2019-06-29 12:37 | DI.RAD.S_ITS ---
PROCEDURE: XR ABDOMEN MIN 2V INDICATIONS: acute rectal pain TECHNIQUE: 2 views of the abdomen were acquired. COMPARISON: [facility], CT, CT ABDOMEN PELVIS W CON, 04/12/2019, 13:45. [facility], CR, XR ABDOMEN MIN 2V, 04/12/2019, 12:00. [facility], CT, CT ABDOMEN PELVIS W CON, 03/04/2019, 17:16. [facility], CR, KUB XRAY (1 VIEW ABDOMEN), 10/31/2016, 9:13. FINDINGS: Surgical changes and devices: None. Bowel: No pneumoperitoneum. The bowel gas pattern is normal. Soft tissues: No masses; visualized solid organ contours appear normal in size. No suspicious abdominal calcifications. Bones: No suspicious bony abnormalities. IMPRESSION: Negative plain films. Dictated by: Guzman Hale M.D. on 06/29/2019 at 11:59 Approved by: Guzman Hale M.D. on 06/29/2019 at 11:59
[2019-06-29 12:41] VITALS: BP 119/91; PULSE 77; RESP 18; O2SAT 100
[2019-06-29 12:53] LABS: Add Manual Diff / Slide Review NO; Basophils Absolute Auto 100 /uL (0-100); Basophils Percent Auto 0.5 % (0-2); Eosinophils Absolute Auto 0 /uL (0-450); Eosinophils Percent Auto 0.1 % (2-4); Hematocrit 42.4 % (36-46); Hemoglobin 14.5 g/dL (12.0-16.0); Lymphocytes Absolute Auto 1200 /uL (1100-4500); Lymphocytes Percent Auto 8.7 % (25-40); Mean Corpuscular HGB Conc 34.2 % (30-36); Mean Corpuscular Hemoglobin 29.3 PG (26-34); Mean Corpuscular Volume 85.8 fL (80-100); Monocytes Absolute Auto 700 /uL (0-900); Monocytes Percent Auto 4.8 % (3-14); Neutrophils Absolute Auto 12200 /uL (1500-7000); Neutrophils Percent Auto 85.9 % (50-75); Platelet Count 277 X10^3/uL (150-400); Red Blood Cell Count 4.94 X10^6/uL (4.0-5.2); Red Cell Distribution Width 12.7 % (11.6-14.8); White Blood Cell Count 14.2 X10^3/uL (4.5-11.0)
[2019-06-29 12:55] LABS: PTT Partial Thromboplastin Tim 24 SECONDS (26.4-36.2)
[2019-06-29 12:57] LABS: BUN Creatinine Ratio 15.6 (6-22); Blood Urea Nitrogen 14 mg/dL (7-17); Calcium 10.3 mg/dL (8.4-10.2); Carbon Dioxide 23 mmol/L (22-32); Chloride 104 mmol/L (98-107); Estimated Glomerular Filt Rate > 60.0 mL/min (>60); Glucose 163 mg/dL (70-100); HEMOLYSIS < 15 (0-50); Potassium 3.5 mmol/L (3.4-5.1); Sodium 143 mmol/L (137-145)
[2019-06-29] MEDS: KETOROLAC 60 MG/2 ML VIAL 30 MG IV (12:57)
[2019-06-29] MEDS: LIDOCAINE 2% (UROJET) 5 ML GEL TOP (13:07)
--- NOTE | 2019-06-29 13:10 | PC.NURSE ---
Pt yelling/crying/verbally abusive to staff members requesting pain medication. Discussed how narcotic pain medication may not be effective for this type of pain. Dry heaving. Given toradol and zofran 4 mg (to equal 8 mg). Had to repeatedly ask pt not to yell at provider and myself. your not listening to me! I need pain medication. Topical lidocaine to rectal area for pain.
[2019-06-29 13:40] VITALS: BP 128/78; PULSE 80; RESP 18; O2SAT 100
[2019-06-29] MEDS: LORazepam 2 MG/ML INJ 0.5 MG IV (13:50)
[2019-06-29 13:54] VITALS: BP 122/80; PULSE 57; O2SAT 99
--- NOTE | 2019-06-29 14:21 | ED.ABDPAIN ---
HPI - Abdominal Pain <ANIL Chavez - Last Filed: 06/30/19 01:03> General Chief Complaint: Abdominal Pain Stated Complaint: rectum exploded Time Seen by Provider: 06/29/19 12:13 Source: patient Mode of arrival: ambulatory Limitations: no limitations History of Present Illness HPI narrative: This is a 29-year-old female, smoker, presents to ED with chief complain of severe rectal pain described as exploded rectum. 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 Lindo in the past. She felt tear in her anus and has been having 10/10 throbbing and pressure-like localized pain to her anus. In the room, patient is screaming yelling and moaning loudly and rolling in bed reporting pain and nausea from pain. Patient was unable to follow guided breathing technique and hyper ventilating during the interview which made taking history almost impossible. Patient reports had formed lumpy stool last night. She denies fever, chills, vomiting. She denies rectal bleeding. Patient reports in the past nifedipine and nitroglycerin ointment were prescribed for anal fissure but these were not helping and not currently using. She repeatedly requesting pain medications before the examination. Related Data Home Medications Medication Instructions Recorded Confirmed nifedipine 1 applic TOPICAL BID 04/12/19 04/12/19 ondansetron 4 mg PO Q6H PRN 04/12/19 04/12/19 Previous Rx's Medication Instructions Recorded hydrocodone-acetaminophen [Erwin] 1 tab PO Q6H PRN #10 tab 03/04/19 zolpidem 5 mg tablet 5 mg PO BEDTIME PRN #30 tab 03/19/19 naproxen 500 mg tablet 500 mg PO BID PRN #20 tab 04/03/19 meloxicam [Mobic] 7.5 mg PO DAILY #14 tab 04/12/19 nitroglycerin 1 inch NH BID PRN #30 gram 04/12/19 promethazine 12.5 mg PO TID PRN #7 tab 06/29/19 Allergies Allergy/AdvReac Type Severity Reaction Status Date / Time Penicillins Allergy Intermediate HIVES, Verified 06/29/19 12:15 LUNGS SWELL amoxicillin [AMOXICILLIN] Allergy Mild HIVES, Verified 06/29/19 12:15 HARD TO BREATH ampicillin [AMPICILLIN] Allergy Mild HIVES, Verified 06/29/19 12:15 HARD TO BREATH Review of Systems <ANIL Chavez - Last Filed: 06/30/19 01:03> Review of Systems General: Denies fever, chills, fatigue, malaise, sweats. HEENT: Denies sinus pain, ear pain, sore throat, difficulty swallowing, dizziness. Respiratory: Denies dyspnea, cough, wheezing, hemoptysis, sputum. Cardiovascular: Denies chest pain, palpitations, orthopnea, edema. Gastrointestinal: See HPI : Denies dysuria, frequency, incontinence, hematuria, urinary retention. Musculoskeletal: Denies weakness, joint pain or bony pain. Skin: Denies rash, skin lesions, or other. Neurologic: Denies weakness, headache, numbness, change in speech, confusion, seizures, incoordination. Psychiatric: No concerning psychosocial issues. 12-point review of systems is negative except for those stated above. PFSH <ANIL Chavez - Last Filed: 06/30/19 01:03> Medical History Diverticulosis (Acute) Dysmenorrhea (Acute) Hemorrhoids (Acute) History of hysterectomy (Acute) History of suicidal ideation (Acute) Menometrorrhagia (Acute) Anxiety (Chronic) Asthma (Chronic) Bipolar disorder (Chronic) Depression (Chronic) Substance abuse (Chronic) Chicken pox (Resolved) History of Helicobacter pylori infection (Resolved) Hx of hysterectomy (Resolved) Spontaneous vaginal delivery (Resolved) Surgical History History of surgery (Acute) Anesthesia (Resolved) History of surgery (Resolved ~2002) History of surgery on arm (Resolved ~2000) Status post laparoscopy (Resolved 2014) Status post tubal ligation (Resolved 03/25/16) Family History Mother Age: 57 Type 2 diabetes mellitus Hypertension Bipolar disorder Brother No problems noted. Father Hypertension Grandfather Lung cancer Grandmother No problems noted. Grandfather No problems noted. Grandmother Stroke Social History household members: spouse and children Smoking Status: Current some day smoker alcohol intake: never Family History Mother Age: 57 Type 2 diabetes mellitus Hypertension Bipolar disorder Brother No problems noted. Father Hypertension Grandfather Lung cancer Grandmother No problems noted. Grandfather No problems noted. Grandmother Stroke Social History (Updated 06/30/19 @ 00:19 by ANIL Chavez) household members: spouse and children Smoking Status: Current every day smoker alcohol intake: never Exam <ANIL Chavez - Last Filed: 06/30/19 01:03> Narrative Exam Narrative: GEN: Alert, oriented x 3, well appearing and nourished, appears to be in severe distress. She was constantly screaming, yelling, moaning as soon as she arrived to ED room to me and other nursing staff during initial encounter. Head: Normal cephalic, atraumatic. No scalp or temporal tenderness, palpable mass or rash. EYES: Pupils are equal, round, and reactive to light and accommodation. Extraocular muscles are intact bilaterally. There is no subconjunctival hemorrhage, exudate and sclera non-icteric. ENT: Hearing grossly intact. Nose without bleeding, purulent discharge. Mucous membrane moist, no mucosal lesion. Throat without erythema, tonsillar hypertrophy or exudate. Uvula in midline, airway patent. Neck: Trachea in midline. No JVD, non-tender without lymphadenopathy. No masses or thyroid megaly. Supple, non-tender and no meningeal signs. CARDIAC: Normal regular rate and rhythm without murmurs, gallops, or rubs. No chest wall tenderness. No peripheral edema, cyanosis or pallor. Capillary refill is less than 2 seconds. RESPIRATORY: Hyperventilating during initial encounter. Lungs are cleat to auscultate bilaterally. No cough, wheezes, rales, or rhonchi. No stridor, respiratory distress, increase work of breathing, or accessary muscle used. ABD: Abdomen soft, nontender and non-distended. No guarding or rebound tenderness to palpate. Bowel sounds are normal in all 4 quadrants. There is no palpable masses or organomegaly. EXT: Full painless ROM of all extremities with no loss of sensation, strength, effusion or edema. SKIN: Warm, dry, normal color for patient. No erythema, lesions or rash over visible areas. BACK: Nontender without deformity or crepitance. No flank tenderness. NEUROLOGICAL: Alert and oriented to place, time and person. No facial droops, dysphasia, moving all extremities. PSYCHIATRIC: A presents even anxious without hallucinations. Uncontrollably crying and screaming. Initial Vital Signs Initial Vital Signs: Vital Signs Temperature 98.1 F 06/29/19 12:05 Pulse Rate 80 06/29/19 12:05 Respiratory Rate 32 H 06/29/19 12:05 Blood Pressure 138/100 H 06/29/19 12:05 Pulse Oximetry 100 06/29/19 12:05 <Adam Galarza DO - Last Filed: 07/02/19 19:14> Initial Vital Signs Initial Vital Signs: Vital Signs Temperature 98.1 F 06/29/19 12:05 Pulse Rate 80 06/29/19 12:05 Respiratory Rate 32 H 06/29/19 12:05 Blood Pressure 138/100 H 06/29/19 12:05 Pulse Oximetry 100 06/29/19 12:05 Scores <ANIL Chavez - Last Filed: 06/30/19 01:03> GCS [place] coma scale eye opening: Spontaneous [place] coma scale verbal response: Orientated [place] coma scale motor response: Obey commands [place] coma scale total score: 15 Course <ANIL Chavez - Last Filed: 06/30/19 01:03> Orders Ordered: Discontinued Medications Hydromorphone HCl (Dilaudid) 1 mg IV NOW ONE Stop: 06/29/19 12:16 Last Admin: 06/29/19 12:18 Dose: 1 mg Hydroxyzine HCl (Vistaril) 25 mg IM NOW ONE Stop: 06/29/19 15:06 Last Admin: 06/29/19 15:48 Dose: 25 mg Sodium Chloride (Normal Saline 0.9%) 1,000 mls @ 1,000 mls/hr IV BOLUS ONE Stop: 06/29/19 13:14 Last Infusion: 06/29/19 13:44 Dose: 0 mls/hr Admin: 06/29/19 12:18 Dose: 1,000 mls/hr Ketorolac Tromethamine (Toradol) 30 mg IV NOW ONE Stop: 06/29/19 12:44 Last Admin: 06/29/19 12:57 Dose: 30 mg Lidocaine HCl (Urojet) 5 ml TOP NOW ONE Stop: 06/29/19 13:08 Last Admin: 06/29/19 13:07 Dose: 5 ml Lorazepam (Ativan) 0.5 mg IV NOW ONE Stop: 06/29/19 13:46 Last Admin: 06/29/19 13:50 Dose: 0.5 mg Ondansetron HCl (Zofran) 4 mg IV NOW ONE Stop: 06/29/19 12:17 Last Admin: 06/29/19 12:18 Dose: 4 mg Ondansetron HCl (Zofran) 4 mg IV NOW ONE Stop: 06/29/19 12:44 Last Admin: 06/29/19 12:58 Dose: 4 mg Vital Signs - 8 hr 06/29/19 15:42 Pulse Rate 78 Respiratory Rate 18 Blood Pressure [Left Arm] 122/78 Pulse Oximetry 98 <Adam Galarza DO - Last Filed: 07/02/19 19:14> Orders Ordered: Discontinued Medications Hydromorphone HCl (Dilaudid) 1 mg IV NOW ONE Stop: 06/29/19 12:16 Last Admin: 06/29/19 12:18 Dose: 1 mg Hydroxyzine HCl (Vistaril) 25 mg IM NOW ONE Stop: 06/29/19 15:06 Last Admin: 06/29/19 15:48 Dose: 25 mg Sodium Chloride (Normal Saline 0.9%) 1,000 mls @ 1,000 mls/hr IV BOLUS ONE Stop: 06/29/19 13:14 Last Infusion: 06/29/19 13:44 Dose: 0 mls/hr Admin: 06/29/19 12:18 Dose: 1,000 mls/hr Ketorolac Tromethamine (Toradol) 30 mg IV NOW ONE Stop: 06/29/19 12:44 Last Admin: 06/29/19 12:57 Dose: 30 mg Lidocaine HCl (Urojet) 5 ml TOP NOW ONE Stop: 06/29/19 13:08 Last Admin: 06/29/19 13:07 Dose: 5 ml Lorazepam (Ativan) 0.5 mg IV NOW ONE Stop: 06/29/19 13:46 Last Admin: 06/29/19 13:50 Dose: 0.5 mg Ondansetron HCl (Zofran) 4 mg IV NOW ONE Stop: 06/29/19 12:17 Last Admin: 06/29/19 12:18 Dose: 4 mg Ondansetron HCl (Zofran) 4 mg IV NOW ONE Stop: 06/29/19 12:44 Last Admin: 06/29/19 12:58 Dose: 4 mg Vital Signs - 8 hr 06/29/19 15:42 Pulse Rate 78 Respiratory Rate 18 Blood Pressure [Left Arm] 122/78 Pulse Oximetry 98 MDM - Abdominal Pain <Darren ANIL Beard - Last Filed: 06/30/19 01:03> Differential Diagnosis Differential diagnosis: Likely other (anal fissure, constipation, rectal fissure, hemorrhoids) Medical Records Attestation: I reviewed the patient's medical records. Lab Data Attestation: I reviewed the patient's lab results. Result diagrams: 06/29/19 12:10 06/29/19 12:10 Lab Results 06/29/19 06/29/19 06/29/19 Range/Units 12:10 12:10 12:10 WBC 14.2 H (4.5-11.0) X10^3/uL RBC 4.94 (4.0-5.2) X10^6/uL Hgb 14.5 (12.0-16.0) g/dL Hct 42.4 (36-46) % MCV 85.8 (80-100) fL MCH 29.3 (26-34) PG MCHC 34.2 (30-36) % RDW 12.7 (11.6-14.8) % Plt Count 277 (150-400) X10^3/uL Neut % (Auto) 85.9 H (50-75) % Lymph % (Auto) 8.7 L (25-40) % [place] % (Auto) 4.8 (3-14) % Eos % (Auto) 0.1 L (2-4) % Baso % (Auto) 0.5 (0-2) % Neut # (Auto) 10520 H (3540-7688) /uL Lymph # (Auto) 1200 (9134-3813) /uL [place] # (Auto) 700 (0-900) /uL Eos # (Auto) 0 (0-450) /uL Baso # (Auto) 100 (0-100) /uL PT 12.0 (10.1-12.7) SECONDS INR 1.0 (0.9-1.3) APTT 24 L (26.4-36.2) SECONDS Sodium 143 (137-145) mmol/L Potassium 3.5 (3.4-5.1) mmol/L Chloride 104 (98-107) mmol/L Carbon Dioxide 23 (22-32) mmol/L BUN 14 (7-17) mg/dL Creatinine 0.90 (0.52-1.04) mg/dL Estimated GFR > 60.0 (>60) mL/min BUN/Creatinine Ratio 15.6 (6-22) Glucose 163 H (70-100) mg/dL Calcium 10.3 H (8.4-10.2) mg/dL Imaging Data XR-Abdomen: Radiologist's impression: [address] [address] XRay Report Signed Patient: Ruchi Johnson [facility]#: [id number] : 1990Acct:[id number] Age/Sex: 28 FDate of Service: 06/29/19 Loc: ED Accession Number: [id number] Procedure: XR abdomen min 2V Ordering Provider: Darren Beard PROCEDURE: XR ABDOMEN MIN 2V INDICATIONS: acute rectal pain TECHNIQUE: 2 views of the abdomen were acquired. COMPARISON: [facility], CT, CT ABDOMEN PELVIS W CON, 04/12/2019, 13:45. [facility], CR, XR ABDOMEN MIN 2V, 04/12/2019, 12:00. [facility], CT, CT ABDOMEN PELVIS W CON, 03/04/2019, 17:16. [facility], CR, KUB XRAY (1 VIEW ABDOMEN), 10/31/2016, 9:13. FINDINGS: Surgical changes and devices: None. Bowel: No pneumoperitoneum. The bowel gas pattern is normal. Soft tissues: No masses; visualized solid organ contours appear normal in size. No suspicious abdominal calcifications. Bones: No suspicious bony abnormalities. IMPRESSION: Negative plain films. Dictated by: Guzman Hale M.D. on 06/29/2019 at 11:59 Approved by: Guzman Hale M.D. on 06/29/2019 at 11:59 [facility] Narrative Medical decision making narrative: This is a 28-year-old female who presents to ED with severe anal/rectal pain which started after bowel movement last night. She reports she felt tear and reports throbbing and pressure-like pain rates as 10/10. Patient reports nausea and this is due to severe pain. She has been vomiting small amount of liquid in ED. She is known to have anal fissure in the past and patient states had [address] Lindo. After reviewing patient's medical record, patient had colonoscopy and hemorrhoidectomy once in the past. Patient reports the pain is only localized to her anus. Denied fever, chills. Patient was provided Dilaudid and Zofran for pain and dry heaving. The patient became calmer for short period. Before the exam could be done, patient again asked for another dose of pain medications stating her pain is recurring. She was offered non opioid pain medications such as Ketolac and additional dose of Zofran for continued nausea. When nonopiod medications were offered, she became upset and states the patient is being labeled by us. Lidocaine topical gel was use on the anus/rectum during examination. Patient gave verbal permission for exam including rectal exam with standby assistance of RN Carolina Pimentel. Anal/rectal exam with benign findings. No blood was seen. There was no obvious fissure was visualized or hemorrhoids. I discussed blood tests, x-ray, physical findings with the patient. I informed patient that this findings are unremarkable. Patient repeatedly requesting pain medications and informed that I am willing to medicate her with nonnarcotic medications such as Tylenol at this time and will consider Ativan. Patient states she has a history of severe anxiety and requested Ativan. When patient was inquired whether she is seeing a counselor, she became upset and reports that she has not mentally unstable. Patient informed that many others who is not mentally unstable receives Counseling Service and reports these sessions have been very helpful for the anxiety. She reports that her nausea has not improved and felt dehydrated. The patient informed that the blood test does not indicated for dehydration. She had received 1 L of normal saline while she was in ED. I evaluated the patient several times while patient was in ED. I found patient, or and resting quietly when I enter the room. However, repeatedly reports of nausea, anxiety or pain. Patient was offered with IM injection of Vistaril for anxiety and nausea and ice chips for oral hydration which she tolerated. Patient made a phone call to get a ride from her [id number]. Return precautions were discussed with the patient. Patient advised to follow with her primary care physician and possibly a referral to GI specialist or all correct her surgeon. Patient advised to prevent constipation, use hot Sitz but for comfort and healing. Patient was discharged with Phenergan p.o. medications for nausea. <Adam Galarza, DO - Last Filed: 07/02/19 19:14> Lab Data Lab Results 06/29/19 06/29/19 06/29/19 Range/Units 12:10 12:10 12:10 WBC 14.2 H (4.5-11.0) X10^3/uL RBC 4.94 (4.0-5.2) X10^6/uL Hgb 14.5 (12.0-16.0) g/dL Hct 42.4 (36-46) % MCV 85.8 (80-100) fL MCH 29.3 (26-34) PG MCHC 34.2 (30-36) % RDW 12.7 (11.6-14.8) % Plt Count 277 (150-400) X10^3/uL Neut % (Auto) 85.9 H (50-75) % Lymph % (Auto) 8.7 L (25-40) % [place] % (Auto) 4.8 (3-14) % Eos % (Auto) 0.1 L (2-4) % Baso % (Auto) 0.5 (0-2) % Neut # (Auto) 08980 H (0967-8795) /uL Lymph # (Auto) 1200 (6248-2157) /uL [place] # (Auto) 700 (0-900) /uL Eos # (Auto) 0 (0-450) /uL Baso # (Auto) 100 (0-100) /uL PT 12.0 (10.1-12.7) SECONDS INR 1.0 (0.9-1.3) APTT 24 L (26.4-36.2) SECONDS Sodium 143 (137-145) mmol/L Potassium 3.5 (3.4-5.1) mmol/L Chloride 104 (98-107) mmol/L Carbon Dioxide 23 (22-32) mmol/L BUN 14 (7-17) mg/dL Creatinine 0.90 (0.52-1.04) mg/dL Estimated GFR > 60.0 (>60) mL/min BUN/Creatinine Ratio 15.6 (6-22) Glucose 163 H (70-100) mg/dL Calcium 10.3 H (8.4-10.2) mg/dL Discharge Plan Departure Patient Disposition: Home Clinical Impression: History of rectal fissure Discharge Date/Time: 06/29/19 16:15 Interventions: ED Discharge Assessment Last Done: 06/29/19 16:14 Instructions: DI for Anal Fissure Activity Restrictions/Additional Instructions: You have been diagnosed with [history of an anal fissure. Today's exam appears to be benign. There was no bleeding noticed. Your x-ray test did not find any acute findings. Her lab tests look unremarkable and there is no big changes from previous results]. What to do: *Take your medications as directed. You are going home with Phenergan/promethazine for nausea. This medication causes drowsiness so please do not drive, operate heavy equipment, drink alcohol. Please continue to use your home medications such as nitroglycerin/nifedipine ointment. Make sure you take high-fiber diet to prevent constipation or hard stools. He can use Sitz bed to help with pain and healing. *Follow up with your primary care provider in 2-3 days, call for an appointment. Let them know you were seen in the ED and that we asked you to be seen in follow up. *Return to ED if you have any new, worsening, or concerning symptoms, such as [severe pain, fever, unable to pass stool, chest pain, breathing difficulty, unable to tolerate fluid, any acute concerns]. Prescriptions: New promethazine 25 mg tablet 12.5 mg PO TID PRN (Reason: nausea and vomiting) Qty: 7 RF: 0 No Action zolpidem 5 mg tablet 5 mg PO BEDTIME PRN (Reason: insomnia) Qty: 30 RF: 2 naproxen [Naprosyn] 500 mg tablet 500 mg PO BID PRN (Reason: pain) Qty: 20 RF: 1 ondansetron 4 mg tablet,disintegrating 4 mg PO Q6H PRN (Reason: nausea and vomiting) RF: 0 nifedipine cream 1 applic topical BID RF: 0 nitroglycerin 0.4 % (w/w) ointment 1 inch NH BID PRN (Reason: rectal discomfort) Qty: 30 RF: 0 meloxicam [Mobic] 7.5 mg tablet 7.5 mg PO DAILY Qty: 14 RF: 0 hydrocodone-acetaminophen [Erwin] 5-325 mg tablet 1 tab PO Q6H PRN (Reason: pain) Qty: 10 RF: 0 Referrals: Kayla Yu MD [Primary Care Provider] - <Adam Galarza DO - Last Filed: 07/02/19 19:14> Cosign ED Attending Celsoature Attestation: I was available for consultation during this patient's emergency department encounter
[2019-06-29 14:30] VITALS: BP 122/70; PULSE 60; O2SAT 100
[2019-06-29 15:42] VITALS: BP 122/78; PULSE 78; RESP 18; O2SAT 98
[2019-06-29] MEDS: hydrOXYzine 50 MG/ML INJ 25 MG IM (15:48)
--- NOTE | 2019-06-29 15:53 | PC.NURSE ---
Pt w/ ongoing c/o pain. If alone, lies quietly in bed. When staff respond to call acosta / enter room for routine care pt becomes agitated, crying and c/o 10 / 10 rectal pain. Discussed options for pain, refused ice pack / tylenol. States to me I need more pain medication...if you don't give it to me I'm going to complain about you. I encouraged her to do so.
--- NOTE | 2019-06-29 16:19 | PC.NURSE ---
Upon cleaning room, found pt instructions. Went to parking lot and did not see pt. Called phone, no answer, left message that instructions would be left at [facility] if she would like to pick them up.
== END 2019-06-29 16:15 | disposition home or self-care (01) ==
PROVIDERS: Emergency Provider Nurse Practitioner Family; PCP Family Medicine
DX: Z87.19 Personal history of other diseases of the digestive system (principal)
CPT/HCPCS: 36591; 74019; 80048; 85025; 85610; 85730; 96361; 96374; 96375; 96376; 99283; 99284; J1170; J1885; J2060; J2405; J3410

== ENCOUNTER → 2019-08-21 10:11 | Outpatient (CLI) | payer OTHER, MEDICAID, SELFPAY ==
[2018-12-27 13:49] VITALS: BMI 27.8
[2019-08-21 10:49] LABS: Add Manual Diff / Slide Review NO; Basophils Absolute Auto 0 /uL (0-100); Basophils Percent Auto 0.6 % (0-2); Eosinophils Absolute Auto 100 /uL (0-450); Eosinophils Percent Auto 1.3 % (2-4); Hematocrit 43.5 % (36-46); Hemoglobin 15.1 g/dL (12.0-16.0); Lymphocytes Absolute Auto 1100 /uL (1100-4500); Lymphocytes Percent Auto 22.1 % (25-40); Mean Corpuscular HGB Conc 34.8 % (30-36); Mean Corpuscular Hemoglobin 29.8 PG (26-34); Mean Corpuscular Volume 85.5 fL (80-100); Monocytes Absolute Auto 400 /uL (0-900); Neutrophils Absolute Auto 3400 /uL (1500-7000); Platelet Count 205 X10^3/uL (150-400); Red Blood Cell Count 5.08 X10^6/uL (4.0-5.2); Red Cell Distribution Width 12.4 % (11.6-14.8)
[2019-08-21 10:57] LABS: BUN Creatinine Ratio 23.3 (6-22); Blood Urea Nitrogen 14 mg/dL (7-17); Calcium 9.8 mg/dL (8.4-10.2); Carbon Dioxide 26 mmol/L (22-32); Chloride 104 mmol/L (98-107); Estimated Glomerular Filt Rate > 60.0 mL/min (>60); Glucose 95 mg/dL (70-100); HEMOLYSIS < 15 (0-50); Sodium 141 mmol/L (137-145)
[2019-08-21 11:28] LABS: TSH w/ Reflex to FT4 1.64 uIU/mL (0.47-4.68)
== END ==
PROVIDERS: PCP Family Medicine; Visit Provider Nurse Practitioner Family
DX: F32.9 Major depressive disorder, single episode, unspecified (principal); F41.9 Anxiety disorder, unspecified; R53.83 Other fatigue
CPT/HCPCS: 36415; 80048; 84443; 85025

== ENCOUNTER 2020-08-06 07:57 | Emergency (ER) | payer OTHER, MEDICAID, SELFPAY ==
[2018-12-27 13:49] VITALS: BMI 27.8
[2020-08-06] VITALS (28 sets, daily range): BP systolic 92–154; BP diastolic 55–95; PULSE 57–79; RESP 16–22; TEMP 36.8; O2SAT 95–100; BMI 21.2
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
--- NOTE | 2020-08-06 08:33 | DI.CT.S_ITS ---
PROCEDURE: CT KIDNEY URETER BLADDER (KUB) INDICATIONS: right flank/RLQ pain TECHNIQUE: Noncontrast 5 mm thick sections acquired from the diaphragms to the symphysis. 5 mm thick coronal and sagittal reformats were then performed. For radiation dose reduction, the following was used: automated exposure control, adjustment of mA and/or kV according to patient size. COMPARISON: [facility], CT, CT ABDOMEN PELVIS W CON, 04/12/2019, 13:45. FINDINGS: Image quality: Excellent. Lung bases: Lung bases are clear. Heart size is normal. Urinary system: Both kidneys are normal in size. No kidney stones. No hydronephrosis or perinephric fat stranding. Both ureters appear non-dilated throughout their expected courses. Bladder wall thickness is normal; no calcified bladder stones. Other solid organs: Liver is normal in size. Gallbladder is unremarkable. Pancreas is normal in contours. Spleen is normal in size. No adrenal nodules. Peritoneum and bowel: Unenhanced bowel loops demonstrate normal wall thickness and caliber. No free fluid or air. Moderately large fecal debris. A normal appendix is identified. Nodes and vessels: No retroperitoneal or mesenteric adenopathy by size criteria. Aorta and inferior vena cava are normal in caliber. Abdominal wall: No ventral hernias. Pelvis: No free pelvic fluid. No inguinal hernias or adenopathy. Uterus is surgically absent. Bones: No suspicious bony lesions. No vertebral body compression fractures. IMPRESSION: 1. No evidence of renal stone, ureteral stone, or hydronephrosis. 2. Normal appendix. 3. Moderately large fecal debris. Dictated by: Thanh Gorman M.D. on 08/06/2020 at 9:28 Approved by: Thanh Gorman M.D. on 08/06/2020 at 9:31
[2020-08-06 08:45] LABS: Add Manual Diff / Slide Review NO; Basophils Absolute Auto 0 /uL (0-100); Basophils Percent Auto 0.6 % (0-2); Eosinophils Absolute Auto 100 /uL (0-450); Eosinophils Percent Auto 2.3 % (2-4); Hematocrit 39.1 % (36-46); Hemoglobin 13.5 g/dL (12.0-16.0); Lymphocytes Absolute Auto 1100 /uL (1100-4500); Lymphocytes Percent Auto 20.2 % (25-40); Mean Corpuscular HGB Conc 34.6 % (30-36); Mean Corpuscular Hemoglobin 29.6 PG (26-34); Mean Corpuscular Volume 85.6 fL (80-100); Monocytes Absolute Auto 400 /uL (0-900); Monocytes Percent Auto 6.9 % (3-14); Neutrophils Absolute Auto 3700 /uL (1500-7000); Platelet Count 195 X10^3/uL (150-400); Red Blood Cell Count 4.57 X10^6/uL (4.0-5.2); Red Cell Distribution Width 13.1 % (11.6-14.8); White Blood Cell Count 5.3 X10^3/uL (4.5-11.0)
[2020-08-06 08:50] LABS: Alanine Aminotransferase 16 IU/L (<35); Albumin 4.1 g/dL (3.5-5.0); Albumin Globulin Ratio 1.3 (1.0-2.8); Alkaline Phosphatase 63 U/L (38-126); Aspartate Aminotransferase 31 IU/L (14-36); BUN Creatinine Ratio 13.3 (6-22); Bilirubin Total 0.4 mg/dL (0.2-1.3); Blood Urea Nitrogen 8 mg/dL (7-17); Calcium 8.8 mg/dL (8.4-10.2); Carbon Dioxide 28 mmol/L (22-32); Chloride 105 mmol/L (98-107); Estimated Glomerular Filt Rate > 60.0 mL/min (>60); Globulin 3.2 g/dL (1.7-4.1); Glucose 85 mg/dL (70-100); HEMOLYSIS 29 (0-50); Lipase 33 U/L (23-300); Potassium 4.1 mmol/L (3.4-5.1); Sodium 139 mmol/L (137-145); Total Protein 7.3 g/dL (6.3-8.2)
[2020-08-06 08:51] LABS: Lactate (Lactic Acid) 0.9 mmol/L (0.7-2.1)
[2020-08-06] MEDS: ONDANSETRON 4 MG/2 ML INJ IV (08:51)
[2020-08-06] MEDS: KETOROLAC 60 MG/2 ML VIAL 15 MG IV (08:51)
[2020-08-06] MEDS: LIDOCAINE 2% 4.8 ML in SODIUM CHLORIDE 0.9% 50 ML 328.8 ML IV (08:51)
[2020-08-06] MEDS: SODIUM CHLORIDE 0.9% 1,000 ML 1000 ML IV ×2 (08:52→10:56)
[2020-08-06 09:06] LABS: Procalcitonin < 0.05 ng/mL (<0.5)
[2020-08-06 09:07] LABS: Appearance Urine UA CLEAR; Bilirubin Urine UA NEGATIVE (NEGATIVE); Color Urine UA YELLOW; Glucose Urine UA NEGATIVE (Negative); Ketones Urine UA NEGATIVE (NEGATIVE); Leukocyte Esterase Urine UA TRACE (NEGATIVE); Nitrite Urine UA NEGATIVE (Negative); Occult Blood Urine UA NEGATIVE (Negative); Protein Urine UA NEGATIVE (Negative); Urobilinogen Urine UA 0.2 E.U./dL (0.2)
--- NOTE | 2020-08-06 09:18 | PC.NURSE ---
Pt crying very loudly and states she wants suboxone before going. Pt begins to yell at me. I inform her she cannot yell at people taking care of her and we need to get her medications from upstairs and that it will take longer and prolong her care if we cannot get her CT. Pt agrees to go to CT at this time. COLIN Eagle getting medication
[2020-08-06 09:19] LABS: pH Urine UA 7.5 (4.5-8.0)
[2020-08-06] MEDS: BUPRENORPHINE/NALOXONE 8MG/2MG 1 TAB 2 TAB SL (09:26)
[2020-08-06 09:33] LABS: Bacteria Urine Moderate (10-30); Culture Indicated Urine Specimen Cultured; RBC Urine 1-5/HPF (0-5/HPF); Squamous Epithelial Cell Urine 1-5 /HPF (0-5/HPF); WBC Urine 1-5/HPF (0-5/HPF)
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
[2020-08-06] MEDS: fentaNYL 100 MCG/2 ML INJ IV ×3 (10:43→15:13)
[2020-08-06] MEDS: LIDOCAINE/PRILOCAINE 5 GM TOP (10:43)
[2020-08-06] MEDS: clonazePAM 0.5 MG TABLET 1 MG PO (10:43)
--- NOTE | 2020-08-06 10:52 | PC.NURSE ---
Pt's father, Rafa. [phone]
[2020-08-06] MEDS: BISACODYL 5 MG TABLET 10 MG PO (10:56)
[2020-08-06] MEDS: LACTULOSE 20 GM/30 ML SOLUTION 60 GM PO (10:56)
--- NOTE | 2020-08-06 12:10 | PC.NURSE ---
Pt is doing much better after medications. VS stable. O2 98% on RA. BSC at bedside
--- NOTE | 2020-08-06 12:36 | PC.NURSE ---
SW here to speak with pt
--- NOTE | 2020-08-06 14:08 | PC.NURSE ---
pt medicated and is attempting to use restroom. Pt is very tearful and fearful of going to the bathroom because it hurts her. provided with call light and privacy.
--- NOTE | 2020-08-06 14:17 | PC.NURSE ---
Assisted pt with bedside commode. Pt had large lose bowel movement and states her belly feels better but still C/o rectal pain. Provided with blankets and ice water.
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
== END 2020-08-06 17:20 | disposition home or self-care (01) ==
PROVIDERS: Emergency Provider Emergency Medicine; PCP Family Medicine
DX: K59.00 Constipation, unspecified (principal); F11.90 Opioid use, unspecified, uncomplicated; K62.89 Other specified diseases of anus and rectum; F43.11 Post-traumatic stress disorder, acute
CPT/HCPCS: 36415; 74176; 80053; 81001; 81003; 83605; 83690; 84145; 85025; 87040; 87086; 96361; 96365; 96375; 96376; 99284; J1885; J2405; J3010

== ENCOUNTER 2020-11-28 17:39 | Emergency (ER) | payer OTHER, MEDICAID, SELFPAY ==
[2018-12-27 13:49] VITALS: BMI 27.8
[2020-11-28 17:51] VITALS: BP 134/80; PULSE 85; RESP 16; TEMP 36.7; O2SAT 100; BMI 25.0
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
--- NOTE | 2020-11-28 18:08 | PC.NURSE ---
Packing replaced by Dr. Servin, wound dressed with nonadeherent bandage and kerlex.
== END 2020-11-28 18:17 | disposition home or self-care (01) ==
PROVIDERS: Emergency Provider Emergency Medicine; PCP Family Medicine
DX: L08.9 Local infection of the skin and subcutaneous tissue, unspecified (principal); L02.414 Cutaneous abscess of left upper limb
CPT/HCPCS: 99281

== ENCOUNTER 2021-01-05 19:34 | Emergency (ER) | payer OTHER, MEDICAID, SELFPAY ==
[2018-12-27 13:49] VITALS: BMI 27.8
[2021-01-05 19:40] VITALS: BP 143/75; PULSE 82; RESP 17; TEMP 36.7; O2SAT 100; BMI 21.2
[2021-01-05 20:23] LABS: RBC Urine 1-5/HPF (0-5/HPF)
[2021-01-05 20:24] LABS: Bacteria Urine Occasional (0-1); Culture Indicated Urine Specimen Cultured; Squamous Epithelial Cell Urine 0-1 /HPF (0-5/HPF); WBC Urine 5-10/HPF (0-5/HPF)
[2021-01-05] MEDS: GENTAMICIN 80 MG/2 ML VIAL 240 MG IM (21:06)
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
[2021-01-09 12:18] LABS: Chlamydia trachomatis Negative (Negative); Mycoplasma genitalium Negative (Negative); Neisseria gonorrhoeae Negative (Negative)
== END 2021-01-05 21:25 | disposition home or self-care (01) ==
PROVIDERS: Emergency Provider Emergency Medicine; PCP Family Medicine
DX: N72 Inflammatory disease of cervix uteri (principal); Z20.2 Contact with and (suspected) exposure to infections with a predominantly sexual mode of transmission
CPT/HCPCS: 81003; 81015; 87070; 87077; 87086; 87147; 87205; 87210; 87252; 87491; 87563; 87591; 96372; 99281; 99283

== ENCOUNTER 2021-01-20 19:38 | Emergency (ER) | payer OTHER, MEDICAID, SELFPAY ==
[2018-12-27 13:49] VITALS: BMI 27.8
[2021-01-20 19:40] VITALS: BP 135/85; PULSE 112; RESP 14; TEMP 36.7; O2SAT 99; BMI 21.2
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
[2021-01-20 21:02] VITALS: BP 110/56; PULSE 94; RESP 22; O2SAT 100
== END 2021-01-20 21:01 | disposition home or self-care (01) ==
PROVIDERS: Emergency Provider Emergency Medicine; PCP Family Medicine
DX: K62.89 Other specified diseases of anus and rectum (principal); K59.00 Constipation, unspecified
CPT/HCPCS: 99281

== ENCOUNTER 2021-08-05 22:34 | Emergency (ER) | payer OTHER, MEDICAID, SELFPAY ==
[2018-12-27 13:49] VITALS: BMI 27.8
--- NOTE | 2021-08-05 23:00 | PC.NURSE ---
Flushed pt's eyes at eye wash station. then continued to complain of burning on skin. Moved pt to shower, and pt in shower for apr 30 minutes. Pt screaming the entire time stating My skin feels like it falling off Gave ibuprofen for pain.
[2021-08-05] MEDS: PROPARACAINE 0.5% OPHTH SOL 1 DROPS EYE-BOTH (23:03)
[2021-08-05] MEDS: IBUPROFEN 400 MG TABLET 800 MG PO (23:20)
[2021-08-05 23:40] VITALS: BP 127/80; PULSE 115; RESP 22; TEMP 36.3; O2SAT 98
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
== END 2021-08-06 00:15 | disposition home or self-care (01) ==
PROVIDERS: Emergency Provider Emergency Medicine; PCP Family Medicine
DX: S05.92XA Unspecified injury of left eye and orbit, initial encounter (principal); S05.91XA Unspecified injury of right eye and orbit, initial encounter; Z77.128 Contact with and (suspected) exposure to other hazards in the physical environment
CPT/HCPCS: 99282; 99284

== ENCOUNTER → 2024-07-25 08:26 | Outpatient (CLI) | payer OTHER, MEDICAID, SELFPAY ==
[2018-12-27 13:49] VITALS: BMI 27.8
[2024-07-25 10:28] LABS: Add Manual Diff / Slide Review NO; Basophils Absolute Auto 100 /uL (0-100); Basophils Percent Auto 1.2 % (0-2); Eosinophils Absolute Auto 300 /uL (0-450); Hematocrit 41.5 % (36-46); Hemoglobin 14.1 g/dL (12.0-16.0); Lymphocytes Absolute Auto 1700 /uL (1100-4500); Lymphocytes Percent Auto 27.6 % (25-40); Mean Corpuscular HGB Conc 33.8 % (30-36); Mean Corpuscular Hemoglobin 28.2 PG (26-34); Mean Corpuscular Volume 83.2 fL (80-100); Monocytes Absolute Auto 300 /uL (0-900); Monocytes Percent Auto 4.7 % (3-14); Neutrophils Absolute Auto 3900 /uL (1500-7000); Neutrophils Percent Auto 62.5 % (50-75); Platelet Count 296 X10^3/uL (150-400); Red Blood Cell Count 4.99 X10^6/uL (4.0-5.2); Red Cell Distribution Width 12.7 % (11.6-14.8); White Blood Cell Count 6.2 X10^3/uL (4.5-11.0)
[2024-07-25 11:17] LABS: Hemoglobin A1C% w Est Avg Glu 5.1 % (4.0-6.0)
[2024-07-25 11:18] LABS: Alanine Aminotransferase 16 IU/L (<35); Albumin 4.1 g/dL (3.5-5.0); Albumin Globulin Ratio 1.1 (1.0-2.8); Alkaline Phosphatase 97 U/L (38-126); Aspartate Aminotransferase 27 IU/L (14-36); BUN Creatinine Ratio 17.2 (6-22); Bilirubin Total 0.5 mg/dL (0.2-1.3); Blood Urea Nitrogen 15 mg/dL (7-17); Calcium 9.6 mg/dL (8.4-10.2); Carbon Dioxide 27 mmol/L (22-32); Chloride 106 mmol/L (98-107); Cholesterol 155 mg/dL (140-199); Estimated Glomerular Filt Rate > 60 mL/min (>60); Globulin 3.6 g/dL (1.7-4.1); Glucose 90 mg/dL (70-100); HDL Cholesterol 42 mg/dL (40-60); HEMOLYSIS < 15 (0-50); LDL Cholesterol Calculated 90 mg/dL (<100); Potassium 4.4 mmol/L (3.4-5.1); Sodium 138 mmol/L (137-145); Total Protein 7.7 g/dL (6.3-8.2); Triglycerides 115 mg/dL (35-150)
[2024-07-25 12:12] LABS: TSH w/ Reflex to FT4 1.35 uIU/mL (0.47-4.68)
== END ==
LOC: LAB 08:29
PROVIDERS: PCP Family Medicine; Referring Provider Family Medicine; Visit Provider Family Medicine
DX: Z76.89 Persons encountering health services in other specified circumstances (principal); F11.99 Opioid use, unspecified with unspecified opioid-induced disorder; F31.9 Bipolar disorder, unspecified; Z83.3 Family history of diabetes mellitus; E66.01 Morbid (severe) obesity due to excess calories
CPT/HCPCS: 36415; 80053; 80061; 83036; 84443; 85025